=== PATIENT | female | born 1960 | race Caucasian/White ===

== ENCOUNTER 2019-04-19 14:02 | Outpatient (CLI) | payer MEDICARE, MEDICAID, SELFPAY ==
[2019-04-19 15:14] LABS: Basophils Absolute Auto 0.1 K/mm3 (0.0-0.1); Basophils Percent Auto 0.9 % (0.2-1.2); Eosinophils Absolute Auto 0.5 K/mm3 (0-0.3); Eosinophils Percent Auto 5.5 % (0-4.4); Hematocrit 38.8 % (37.0-47.0); Hemoglobin 12.7 g/dL (12.0-15.0); Immature Granulocyte Absolute 0.04 K/mm3 (0.00-0.031); Immature Granulocyte Percent A 0.5 % (0-0.5); Lymphocytes Absolute Auto 2.81 K/mm3 (0.9-3.2); Lymphocytes Percent Auto 34.5 % (18.3-44.2); Mean Corpuscular HGB Conc 32.7 g/dl (32-36); Mean Corpuscular Hemoglobin 32.9 pg (26-34); Mean Corpuscular Volume 100.5 fl (80-100); Mean Platelet Volume 9.9 fl (7.4-10.4); Monocytes Absolute Auto 0.8 K/mm3 (0.1-0.6); Monocytes Percent Auto 10.3 % (2.6-8.5); Neutrophils Absolute Auto 3.9 K/mm3 (1.3-6.7); Neutrophils Percent Auto 48.3 % (45.5-73.1); Platelet Count Result 333 k/mm3 (150-375); Red Blood Count 3.86 M/mm3 (4.2-5.4); Red Cell Distribution Width 12.7 % (11.5-14.5); White Blood Count 8.1 K/mm3 (4.5-10.0)
[2019-04-19 15:16] LABS: Add Urine Microscopic? NO; Appearance Urine Clear (Clear); Bilirubin Urine Negative (Negative); Blood Urine Negative (Negative); Color Urine Yellow (Yellow); Glucose Urine UA Negative (Negative); Ketones Urine Negative (Negative); Leukocyte Esterase Ur Negative LEU/UL (Negative); Nitrate Urine Negative (Negative); Protein Urine Negative (Negative); Specific Grav Ur 1.023 (1.001-1.035); Urobilinogen Urine Negative mg/dL (<2.0)
[2019-04-19 15:21] LABS: INR 0.9; Prothrombin Time 12.2 Seconds (11.1-14.7)
[2019-04-19 15:22] LABS: Partial Thromboplastin Time 29.4 SECONDS (22.3-36.8)
[2019-04-19 15:34] LABS: Albumin Level 4.2 g/dL (3.5-5.1); Blood Urea Nitrogen 18 mg/dL (7-17); Carbon Dioxide 28 mmol/L (22-30); Chloride 100 mmol/L (98-107); Estimated Glomerular Filt Rate 51; Glucose 48 mg/dL (65-105); Hemoglobin A1C 5.1 % (<5.7); Potassium 3.9 mmol/L (3.4-5.0); Sodium 137 mmol/L (137-145)
[2019-04-19 22:27] LABS: Urine Cotinine NEGATIVE
== END 2019-04-19 14:03 | disposition home or self-care (01) ==
LOC: ANHSURGERY 14:07
PROVIDERS: PCP Internal Medicine; Visit Provider Orthopaedic Surgery
DX: Z01.812 Encounter for preprocedural laboratory examination (principal); M87.00 Idiopathic aseptic necrosis of unspecified bone
CPT/HCPCS: 36415; 80048; 80307; 81003; 82040; 83036; 85025; 85610; 85730; 86850; 86900; 86901; 87081

== ENCOUNTER 2019-06-30 07:30 | Outpatient (RCR) | payer MEDICARE, MEDICAID, SELFPAY ==
[2019-06-08 11:08] VITALS: BMI 31.6
--- NOTE | 2019-06-08 12:24 | WPDWOUNDNOTE ---
Wound Care Note Date/Time: 06/08/19 12:24 Assessment and Plan Assessment and plan (1) S/P total knee arthroplasty: Qualifiers: Laterality: right Qualified Code(s): Z96.651 - Presence of right artificial knee joint Code(s): Z96.659 - Presence of unspecified artificial knee joint Status: Acute Assessment and Plan: 5 weeks, 6 days s/p RIGHT TKA. Patient presents to the [facility] today for follow up of wound on the right knee incision line. Right TKA incision with two areas of wound dehiscence now with slough covering wounds. Wounds without probing to bone/tendon or component. AROM/PROM of the right knee without pain. No signs of joint infection. Patient to continue washing wound with Hibiclens daily and transition to Santyl daily. Continue oral antibiotics. Patient to continue use of Ensure. Signs/symptoms of worsening infection reviewed with the patient in detail to report to ED immediately, verbalized understanding. Follow up in 1 week in the [facility] wound clinic for reevaluation. Review of Systems Const Reports as per HPI, Denies chills, Denies fatigue, Denies headache(s), Denies night sweats, Denies weakness, Denies weight gain and Denies weight loss Eyes Reports no additional eye complaints and Denies eye discharge ENT Reports system reviewed and no additional complaints, except as documented, Reports Normal hearing present, Denies dizziness, Denies headache(s) and Denies neck pain Card Reports no additional cardiovascular complaints, Denies chest pain, Denies syncope, Denies dyspnea and Denies dyspnea on exertion Resp Reports no additional respiratory complaints, Denies dyspnea, Denies dyspnea on exertion and Denies wheezing GI Reports no additional gastrointestinal complaints, Denies abdominal pain, Denies diarrhea and Denies nausea Denies urinary frequency and Denies urinary urgency Musc Reports as per HPI and Denies neck pain Skin/Breast Reports system reviewed and no additional complaints, except as docu Neuro Reports as per HPI, Reports Normal hearing present, Denies dizziness, Denies syncope, Denies headache(s) and Denies weakness Psych Reports no additional psychiatric complaints Endo Reports no additional endocrine complaints and Denies fatigue David/Lymph Reports no additional hematologic/lymphatic complaints Aller/Immun Reports no additional allergic/immunologic complaints and Denies wheezing Exam Const Constitutional General: cooperative Nutritional Appearance: average body habitus Orientation/consciousness: patient oriented x3 Constitutional Limitations: no limitations HENIL Head: normal to inspection Ears: hearing grossly normal bilaterally General nose exam: Normal external nose present Face and sinus: normal facial exam Mouth: moist mucous membranes Teeth and gingiva: dentition normal Eyes General: appearance normal, both eyes and all related structures Pupils: Yes Equal, round and reactive pupils present EOM: EOMs intact bilaterally Neck Neck: Yes normal visual inspection Chest Chest palpation & inspection: normal inspection of the chest Resp Effort & Inspection: normal respiratory effort and able to speak in complete sentences Cardio Jugular venous distension: no JVD Neuro Cranial nerves: Yes Equal, round and reactive pupils present Extrem Right upper extremity: normal to inspection, full ROM and normal capillary refill Left upper extremity: normal to inspection, full ROM and normal capillary refill Right lower extremity: normal to inspection, full ROM (limited knee ), normal capillary refill, knee and ankle (+ankle dorsiflexion/plantarflexion. ) Left lower extremity: normal to inspection, full ROM, normal capillary refill and knee Other: Right TKA incision now with dehiscence. More proximal wound with slough tissue, improving. Underlying ulcer without probing to bone/tendon or component. More distal ulcer with slough tissue covering as well, underlying ulcer without pro
--- NOTE | 2019-06-15 08:51 | WPDWOUNDNOTE ---
Wound Care Note Date/Time: 06/15/19 08:51 6 weeks, 6 days s/p RIGHT TKA Assessment and Plan Assessment and plan (1) Wound dehiscence: Code(s): T81.30XA - Disruption of wound, unspecified, initial encounter Status: Acute Assessment and Plan: 6 weeks, 6 days s/p RIGHT TKA. Patient presents to the [facility] today for follow up of wound on the right knee incision line. Right TKA incision with two areas of wound dehiscence now with 100% red/pink wound bed with use of Santyl daily. Wounds without probing to bone/tendon or component. AROM/PROM of the right knee without pain. No signs of joint infection. Patient to continue washing wound with Hibiclens daily and treating with Santyl/Vaseline Gauze/Cover dry. Continue oral antibiotics, prescription renewed. Patient to continue use of Ensure. Signs/symptoms of worsening infection reviewed with the patient in detail to report to ED immediately, verbalized understanding. Follow up in 1 week in the [facility] wound clinic for reevaluation. (2) S/P total knee arthroplasty: Qualifiers: Laterality: right Qualified Code(s): Z96.651 - Presence of right artificial knee joint Code(s): Z96.659 - Presence of unspecified artificial knee joint Status: Acute Assessment and Plan: Plan to resume formal PT at this time. Prescription renewed. Faxed to [facility] in [place]. (3) Smoking: Code(s): F17.200 - Nicotine dependence, unspecified, uncomplicated Status: Acute Assessment and Plan: Patient continues to smoke despite counseling on need for cessastion in order for improved wound healing. We discussed the [place] [employer] [place] and the [facility] smoking cessation program. Patient verbalized understanding. Review of Systems Const Reports as per HPI, Denies chills, Denies fatigue, Denies headache(s), Denies night sweats, Denies weakness, Denies weight gain and Denies weight loss Eyes Reports no additional eye complaints and Denies eye discharge ENT Reports system reviewed and no additional complaints, except as documented, Reports Normal hearing present, Denies dizziness, Denies headache(s) and Denies neck pain Card Reports no additional cardiovascular complaints, Denies chest pain, Denies syncope, Denies dyspnea and Denies dyspnea on exertion Resp Reports no additional respiratory complaints, Denies dyspnea, Denies dyspnea on exertion and Denies wheezing GI Reports no additional gastrointestinal complaints, Denies abdominal pain, Denies diarrhea and Denies nausea Denies urinary frequency and Denies urinary urgency Musc Reports as per HPI and Denies neck pain Skin/Breast Reports system reviewed and no additional complaints, except as docu Neuro Reports as per HPI, Reports Normal hearing present, Denies dizziness, Denies syncope, Denies headache(s) and Denies weakness Psych Reports no additional psychiatric complaints Endo Reports no additional endocrine complaints and Denies fatigue David/Lymph Reports no additional hematologic/lymphatic complaints Aller/Immun Reports no additional allergic/immunologic complaints and Denies wheezing Exam Const Constitutional General: cooperative Nutritional Appearance: average body habitus Orientation/consciousness: patient oriented x3 Constitutional Limitations: no limitations HENMT Head: normal to inspection Ears: hearing grossly normal bilaterally General nose exam: Normal external nose present Face and sinus: normal facial exam Mouth: moist mucous membranes Teeth and gingiva: dentition normal Eyes General: appearance normal, both eyes and all related structures Pupils: Yes Equal, round and reactive pupils present EOM: EOMs intact bilaterally Neck Neck: Yes normal visual inspection Chest Chest palpation & inspection: normal inspection of the chest Resp Effort & Inspection: normal respiratory effort and able to speak in complete sentences Cardio Jugular venous distension: no JVD Neuro
--- NOTE | 2019-07-07 16:50 | PCWOUND ---
WOCN NOTE Received call from Dr Grajeda office. patient no longer needs to follow in the wound center.
== END 2019-08-23 07:44 | disposition home or self-care (01) ==
LOC: ANHWOC 07:30
PROVIDERS: PCP Internal Medicine; Visit Provider Orthopaedic Surgery
DX: T81.31XD Disruption of external operation (surgical) wound, not elsewhere classified, subsequent encounter (principal); F17.200 Nicotine dependence, unspecified, uncomplicated; Z96.651 Presence of right artificial knee joint
CPT/HCPCS: 99212; A9270; G0463

== ENCOUNTER 2019-06-30 08:36 | Outpatient (CLI) | payer MEDICARE, MEDICAID, SELFPAY ==
[2019-06-30 08:49] LABS: Hematocrit 43.9 % (37.0-47.0); Hemoglobin 14.1 g/dL (12.0-15.0)
== END 2019-06-30 08:37 | disposition home or self-care (01) ==
PROVIDERS: PCP Internal Medicine; Visit Provider Internal Medicine
DX: D64.9 Anemia, unspecified (principal)
CPT/HCPCS: 36415; 85014; 85018; 99212; A9270; G0463

== ENCOUNTER 2019-10-06 13:29 | Outpatient (CLI) | payer MEDICARE, MEDICAID, SELFPAY ==
--- NOTE | ~2019-10-06 | CT_ITS ---
EXAMINATION: CT lung screening EXAM DATE: 10/06/2019 14:00 INDICATION: Personal history of nicotine dependence. TECHNIQUE: Spiral low dose CT of the chest without contrast. Axial, coronal and sagittal images were reviewed. The dose-length product (DLP) for this examination was 77.86 mGy-cm. The exposure was ta ilored according to patient size (auto mA exposure control), and iterative reconstruction (ASIR) was used as additional dose reduction technique. Comparison is made to prior examination from 07/21/2015. FINDINGS: There is mild to moderate emphysema and mild bronchiectasis. Tracheobronchial tree is pa tent. There is no mediastinal, hilar or axillary lymphadenopathy. There is small pericardial effu satnam. There is no pneumothorax. Heart normal in size. There is minimal coronary arterial calcifi cation, arterial sclerosis. Some scattered faint punctate nodules likely granulomas. Upper abdomen is unremarkable. There is thoracic spondylosis without osteoblastic or osteolytic lesions identified. IMPRESSION: Lung-RADS category 2, benign appearance or behavior (<1% chance of malignancy); recommend continued LDCT screening in 1 year. Reviewed, dictated and finalized at location A.
== END 2019-10-06 13:30 | disposition home or self-care (01) ==
PROVIDERS: PCP Internal Medicine; Visit Provider Nurse Practitioner Family
DX: Z12.2 Encounter for screening for malignant neoplasm of respiratory organs (principal); Z87.891 Personal history of nicotine dependence
CPT/HCPCS: G0297

== ENCOUNTER 2019-12-11 00:46 | Outpatient (CLI) | payer MEDICARE, MEDICAID, SELFPAY ==
[2019-12-11 18:31] LABS: SARS-CoV-2 RNA PCR Negative
== END 2019-12-11 00:47 | disposition home or self-care (01) ==
LOC: ANHCOVIDDT 00:47
PROVIDERS: PCP Internal Medicine; Visit Provider Internal Medicine Gastroenterology
DX: Z01.812 Encounter for preprocedural laboratory examination (principal); Z11.59 Encounter for screening for other viral diseases
CPT/HCPCS: 87635; C9803; U0003

== ENCOUNTER 2019-12-14 02:03 | Day surgery (SDC) | payer MEDICARE, MEDICAID, SELFPAY ==
[2019-12-03 10:55] VITALS: BMI 31.0
--- NOTE | 2019-12-14 07:12 | WPDANESEPPF ---
Anes - Initial Pre Proc Eval Procedure: Operation Date: 12/14/19 08:30 Proposed Procedures p Screening Colonoscopy - Benjamín Marino MD Date/Time: 12/14/19 07:12 Surgeon: Benjamín Marino MD Pre Op Diagnosis: neoplasm screening Patient Data Age: 59 Gender: F Height: 1.6 m Weight: 79.5 kg Allergies Allergy/AdvReac Type Severity Reaction Status Date / Time Iodinated Contrast Media Allergy Unknown hives Verified 12/14/19 07:23 Penicillins Allergy Unknown Hives,Unkno Verified 12/14/19 07:23 wn Home Medications Medication Instructions Recorded Confirmed Type bupropion HCl 150 mg PO BID 04/19/19 12/14/19 History ipratropium-albuterol 3 ml INHALATION BID 04/19/19 12/14/19 History cyclobenzaprine 10 mg tablet 10 mg PO TID PRN #30 tablet 05/06/19 12/14/19 Rx chlorhexidine gluconate 4 % 1 applic TOPICAL ONCE #236 ml 06/01/19 12/14/19 Rx topical liquid valsartan 160 mg tablet 160 mg PO DAILY #30 tablet 07/19/19 12/14/19 Rx fluticasone furoate 200 1 inhalation INHALATION Q24H 30 08/10/19 12/14/19 Rx mcg-vilanterol 25 mcg/dose Days #60 each inhalation powder albuterol sulfate 90 mcg/actuation 2 puff INHALATION QID PRN #8.5 gm 08/16/19 12/14/19 Rx aerosol inhaler omeprazole 40 mg capsule,delayed 40 mg PO DAILY #90 cap 08/20/19 12/14/19 Rx release atorvastatin 80 mg tablet See Rx Instructions .ROUTE 08/23/19 12/14/19 Rx .COMPLEX #90 tablet azelastine 137 mcg (0.1 %) nasal 137 mcg NASAL Q12H #30 ml 09/27/19 12/14/19 Rx spray aerosol fluticasone propionate 50 1 spray NASAL BID PRN #18.2 ml 09/27/19 12/14/19 Rx mcg/actuation nasal spray,suspension montelukast 10 mg tablet 10 mg PO DAILY #30 tablet 09/27/19 12/14/19 Rx Patient hx anesthesia problems: none Family hx anesthesia problems: none PMFSH Past Medical History Medical History (Updated 10/27/19 @ 08:17 by Lissy Hall NP-C) AVN (avascular necrosis of bone) Chronic pain syndrome COPD (chronic obstructive pulmonary disease) CVA (cerebral vascular accident) No residual deficits. Degenerative joint disease of knee Depression GERD (gastroesophageal reflux disease) Hyperlipidemia Hypertension Neuropathy Obstructive sleep apnea Not very compliant with CPAP. Postmenopausal Screening for breast cancer Screening for colon cancer Smoking Tobacco abuse Wound dehiscence Surgical History Surgical History S/P total knee arthroplasty Status post bilateral knee replacements Status post breast augmentation Status post cataract extraction Status post insertion of spinal cord stimulator Status post tubal ligation Social History Social History Social History: Mehul as her surrogate decision maker. She wishes to be a full code. Smoking packs per day: 1 Smoking cigarettes per day: 20.0 Years smoked: 40 Smoking pack-years: 40.00 Smoking status: Former smoker Tobacco type: cigarettes Smoking end date: 05/12/17 Alcohol intake: never Drinks per week: 12 Substance use: never Gender identity (if verbalized by the patient): Female Spiritual care concerns: No Agree to blood products: Yes Anes - Eval Final PreProcedure Day of Procedure 12/14/19 07:12 Patient weight: obese Heart: regular rate and rhythm Lungs: clear to auscultation and normal air movement Airway: Mallampati scale class II Neurological: alert and oriented Last oral intake: >/= 8 hours ASA classification: III Emergent: no Anesthetic plan: proceed Anesthesia type and monitoring: general GIVS and standard monitoring Informed Consent: The patient's anesthetic plan and its attendant risks and benefits were discussed with the patient/family/POA. Questions were solicited and answers provided to the satisfaction of the patient/family/POA.
[2019-12-14] MEDS: LACTATED RINGERS 1,000 ML 150 ML IV CONT (07:48)
[2019-12-14 07:50] VITALS: BP 136/76; PULSE 90; RESP 20; TEMP 36.3; O2SAT 96
--- NOTE | 2019-12-14 08:29 | PM.HPGS ---
History of Present Illness History of Present Illness Consent: Risks, benefits, and alternatives have been discussed and questions answered. Patient agrees to proceed with procedure. Chief complaint: neoplasm screening Narrative: Yun Rodriguez is a 59 year old female here for screening colonoscopy Review of Systems Constitutional: Constitutional: Denies headache(s) and Denies weakness Eyes: Eyes: Denies blurry vision ENT: Reports Normal hearing present, Denies headache(s) and Denies neck pain Cardiovascular: Cardiovascular: Denies chest pain and Denies dyspnea Respiratory: Respiratory: Denies dyspnea Gastrointestinal: Gastrointestinal: Reports no additional gastrointestinal complaints Genitourinary: Genitourinary: Denies dysuria Musculoskeletal: Musculoskeletal: Denies neck pain Integumentary/Breasts: Skin/Breast: Denies dry skin Neurologic: Reports Normal hearing present, Denies headache(s) and Denies weakness Psychiatric: Psychiatric: Denies anxiety Endocrine: Endocrine: Denies change in body appearance Hematologic/Lymphatic: Hematologic/Lymphatic: Denies easy bleeding Allergic/Immunologic: Allergic/Immunologic: Denies urticaria PMF Past Medical History Medical History (Updated 10/27/19 @ 08:17 by Lissy Hall, MECHANOTHERAPIST-C) AVN (avascular necrosis of bone) Chronic pain syndrome COPD (chronic obstructive pulmonary disease) CVA (cerebral vascular accident) No residual deficits. Degenerative joint disease of knee Depression GERD (gastroesophageal reflux disease) Hyperlipidemia Hypertension Neuropathy Obstructive sleep apnea Not very compliant with CPAP. Postmenopausal Screening for breast cancer Screening for colon cancer Smoking Tobacco abuse Wound dehiscence Surgical History Surgical History S/P total knee arthroplasty Status post bilateral knee replacements Status post breast augmentation Status post cataract extraction Status post insertion of spinal cord stimulator Status post tubal ligation Social History Social History Social History: Mehul as her surrogate decision maker. She wishes to be a full code. Smoking packs per day: 1 Smoking cigarettes per day: 20.0 Years smoked: 40 Smoking pack-years: 40.00 Smoking status: Former smoker Tobacco type: cigarettes Smoking end date: 05/12/17 Alcohol intake: never Drinks per week: 12 Substance use: never Gender identity (if verbalized by the patient): Female Spiritual care concerns: No Agree to blood products: Yes Meds Home Medications and Allergies Home Medications Medication Instructions Recorded Confirmed Type bupropion HCl 150 mg PO BID 04/19/19 12/14/19 History ipratropium-albuterol 3 ml INHALATION BID 04/19/19 12/14/19 History cyclobenzaprine 10 mg tablet 10 mg PO TID PRN #30 tablet 05/06/19 12/14/19 Rx chlorhexidine gluconate 4 % 1 applic TOPICAL ONCE #236 ml 06/01/19 12/14/19 Rx topical liquid valsartan 160 mg tablet 160 mg PO DAILY #30 tablet 07/19/19 12/14/19 Rx fluticasone furoate 200 1 inhalation INHALATION Q24H 30 08/10/19 12/14/19 Rx mcg-vilanterol 25 mcg/dose Days #60 each inhalation powder albuterol sulfate 90 mcg/actuation 2 puff INHALATION QID PRN #8.5 gm 08/16/19 12/14/19 Rx aerosol inhaler omeprazole 40 mg capsule,delayed 40 mg PO DAILY #90 cap 08/20/19 12/14/19 Rx release atorvastatin 80 mg tablet See Rx Instructions .ROUTE 08/23/19 12/14/19 Rx .COMPLEX #90 tablet azelastine 137 mcg (0.1 %) nasal 137 mcg NASAL Q12H #30 ml 09/27/19 12/14/19 Rx spray aerosol fluticasone propionate 50 1 spray NASAL BID PRN #18.2 ml 09/27/19 12/14/19 Rx mcg/actuation nasal spray,suspension montelukast 10 mg tablet 10 mg PO DAILY #30 tablet 09/27/19 12/14/19 Rx Allergies Allergy/AdvReac Type Severity Reaction Status Date / Time Iodinated Contrast Media A
[2019-12-14 09:01] VITALS: BP 84/42; PULSE 60; RESP 21; O2SAT 99
[2019-12-14 09:11] VITALS: BP 97/45; PULSE 60; RESP 22; O2SAT 100
[2019-12-14 09:21] VITALS: BP 117/52; PULSE 64; RESP 21; O2SAT 100
== END 2019-12-14 09:31 | disposition home or self-care (01) ==
PROVIDERS: PCP Internal Medicine; Visit Provider Internal Medicine Gastroenterology
PROC: 0DJD8ZZ Inspection of Lower Intestinal Tract, Via Natural or Artificial Opening Endoscopic (ICD-10-PCS; CPT 45378; principal; 2019-12-14 08:30)
DX: Z12.11 Encounter for screening for malignant neoplasm of colon (principal); D12.2 Benign neoplasm of ascending colon; I12.9 Hypertensive chronic kidney disease with stage 1 through stage 4 chronic kidney disease, or unspecified chronic kidney disease; N18.3 Chronic kidney disease, stage 3 (moderate); E78.5 Hyperlipidemia, unspecified; J44.9 Chronic obstructive pulmonary disease, unspecified; G47.33 Obstructive sleep apnea (adult) (pediatric); F32.9 Major depressive disorder, single episode, unspecified; Z86.73 Personal history of transient ischemic attack (TIA), and cerebral infarction without residual deficits; K21.9 Gastro-esophageal reflux disease without esophagitis; G89.4 Chronic pain syndrome; G62.9 Polyneuropathy, unspecified; Z87.891 Personal history of nicotine dependence; E66.9 Obesity, unspecified; Z68.30 Body mass index [BMI] 30.0-30.9, adult
CPT/HCPCS: 45385; 88305; J2001; J2704; J7120

== ENCOUNTER 2020-04-27 08:05 | Outpatient (CLI) | payer MEDICARE, MEDICAID, SELFPAY ==
[2020-04-27 08:40] LABS: Hematocrit 44.2 % (37.0-47.0); Hemoglobin 14.9 g/dL (12.0-15.0)
[2020-04-27 08:58] LABS: Cholesterol 147 mg/dL (0-200); HDL Direct 64 mg/dL; Triglycerides 144 mg/dL (<150)
[2020-04-27 09:09] LABS: LDL Cholesterol Direct 53 mg/dL
== END 2020-04-27 08:06 | disposition home or self-care (01) ==
PROVIDERS: PCP Internal Medicine; Visit Provider Internal Medicine
DX: D64.9 Anemia, unspecified (principal); E78.5 Hyperlipidemia, unspecified
CPT/HCPCS: 36415; 80061; 85014; 85018

== ENCOUNTER 2020-10-16 09:36 | Inpatient (IN) | payer MEDICARE, MEDICAID, SELFPAY ==
[2020-10-16] VITALS (26 sets, daily range): BP systolic 131–155; BP diastolic 56–100; PULSE 62–111; RESP 18–46; TEMP 35.7–37; O2SAT 93–98; BMI 36.3
--- NOTE | ~2020-10-16 | XR_ITS ---
EXAMINATION: XR chest 1V portable DATE: 10/16/2020 10:34 INDICATION: Shortness of breath. Chronic obstructive pulmonary disease exacerbation. TECHNIQUE: A single frontal view of the chest was obtained. COMPARISON: Chest single view 06/10/2017, chest CT 10/06/2019 FINDINGS: There are lucencies in the upper lungs, consistent with emphysema. No pleural effusion or p neumothorax. The heart size is normal. Epidural electrodes are noted. There are bilateral breast impl ants. IMPRESSION: 1. Emphysema. Reviewed, dictated and finalized at location A. IMPRESSION: 1. Emphysema.
--- NOTE | 2020-10-16 09:45 | ECG_ITS ---
Measurements Intervals [place] Rate: 103 P: 67 AR: 148 QRS: 76 QRSD: 90 T: 57 QT: 329 QTc: 431 Interpretive Statements SINUS TACHYCARDIA BORDERLINE ST ABNORMALITY- LATERAL LEADS BASELINE ARTIFACT- I, II, III, AVR, AVL, AVF, V2-V6 BORDERLINE ECG Electronically Signed On 10-17-2020 19:03:23 CDT by Tru Hunter D.O.
--- NOTE | 2020-10-16 09:56 | ED.SOB ---
HPI - SOB/Dyspnea General Chief Complaint: Shortness of Breath/Dyspnea Stated Complaint: SOB Time Seen by Provider: 10/16/20 09:56 Source: patient Mode of arrival: ambulatory Limitations: clinical condition History of Present Illness HPI Narrative: Patient is a 60-year-old female with a history of COPD who presents for evaluation of shortness of breath. Patient reportedly has been feeling short of breath over the past 2 weeks, has been on 2 prednisone tapers and finished her last one 3 days ago. Patient follows with Dr. Deras with pulmonology. Patient denies fever or chest pain, states she has had difficulty taking a deep breath and has had increased work of breathing over the past 48 hours. She has been using her nebulizer treatments at home without much improvement. She is still smoking. She reports cough with increased sputum production. No hemoptysis. No history of Covid. Patient is vaccinated. Related Data Allergies Allergy/AdvReac Type Severity Reaction Status Date / Time Iodinated Contrast Media Allergy Mild hives Verified 10/16/20 09:49 Penicillins Allergy Mild Hives,Unkno Verified 10/16/20 09:49 wn Review of Systems Review of Systems: Narrative: CONSTITUTIONAL: Denies fever, chills, or sweats. EYES: Denies visual changes, redness, or discharge. ENT: Denies rhinorrhea or congestion CARDIOVASCULAR: Denies chest pain, palpitations, or edema. RESPIRATORY: Reports cough and shortness of breath GASTROINTESTINAL: Denies abdominal pain, nausea, vomiting, or diarrhea. GENITOURINARY: Denies dysuria or hematuria. SKIN: Denies rash or itching. MUSCULOSKELETAL: Denies back pain, joint pain, or myalgia. NEUROLOGIC: Denies headache, numbness, or weakness. [facility] Past Medical History Medical History Abnormal LFTs Adverse effect of glucocorticoids and synthetic analogues, initial encounter Avascular necrosis due to adverse effect of steroid therapy Avascular necrosis of medial condyle of left femur AVN (avascular necrosis of bone) Cerebrovascular accident (CVA) Chronic pain syndrome COPD (chronic obstructive pulmonary disease) CVA (cerebral vascular accident) No residual deficits. Degenerative joint disease of knee Depression Eczematous dermatitis of unspecified eye, unspecified eyelid GERD (gastroesophageal reflux disease) Hyperlipidemia Hypertension Neuropathy Obstructive sleep apnea Postmenopausal Screening for breast cancer Screening for colon cancer Smoking Tobacco abuse Wound dehiscence Surgical History Surgical History Presence of left artificial knee joint S/P total knee arthroplasty Status post bilateral knee replacements Status post breast augmentation Status post cataract extraction Status post insertion of spinal cord stimulator Status post tubal ligation Family History Family History Sibling Asthma Mother Family history of lung cancer Patient's mother is Hypertension Father Family history of lung cancer Patient's father is Social History Social History Social History: Mehul as her surrogate decision maker. She wishes to be a full code. Smoking packs per day: 1 Smoking cigarettes per day: 20.0 Years smoked: 40 Smoking pack-years: 40.00 Smoking status: Current every day smoker Tobacco type: cigarettes Smoking end date: 05/12/17 Alcohol intake: never Drinks per week: 12 Substance use: never Gender identity (if verbalized by the patient): Female Spiritual care concerns: No Agree to blood products: Yes Exam Narrative: Exam Narrative: GENERAL: Awake, alert, diaphoretic, able to speak in short sentences only HEAD: Normocephalic, atraumatic. EYES: PERRLA and EOMI. ENT: Nares clear, no rhinorrhea or epistaxis.
[2020-10-16] MEDS: methylPREDNISolone SOD SUCC 125 MG VIAL IV PUSH (10:08)
[2020-10-16] MEDS: MAGNESIUM SULF 2 GM/WATER 50ML 2 GM/50 ML BAG IVPB (10:08)
[2020-10-16] MEDS: SODIUM CHLORIDE 0.9% IV 1,000 ML 999 ML IV CONT (10:08)
[2020-10-16 10:25] LABS: Basophils Absolute Auto 0.1 K/mm3 (0.0-0.1); Eosinophils Absolute Auto 1.2 K/mm3 (0-0.3); Eosinophils Percent Auto 10.1 % (0-4.4); Hematocrit 46.4 % (37.0-47.0); Hemoglobin 15.1 g/dL (12.0-15.0); Immature Granulocyte Absolute 0.05 K/mm3 (0.00-0.031); Immature Granulocyte Percent A 0.4 % (0-0.5); Lymphocytes Absolute Auto 4.18 K/mm3 (0.9-3.2); Lymphocytes Percent Auto 34.9 % (18.3-44.2); Mean Corpuscular HGB Conc 32.5 g/dl (32-36); Mean Corpuscular Hemoglobin 32.2 pg (26-34); Mean Corpuscular Volume 98.9 fl (80-100); Mean Platelet Volume 9.9 fl (7.4-10.4); Monocytes Absolute Auto 1.1 K/mm3 (0.1-0.6); Monocytes Percent Auto 9.2 % (2.6-8.5); Neutrophils Absolute Auto 5.3 K/mm3 (1.3-6.7); Neutrophils Percent Auto 44.4 % (45.5-73.1); Platelet Count Result 321 k/mm3 (150-375); Red Blood Count 4.69 M/mm3 (4.2-5.4); Red Cell Distribution Width 13.7 % (11.5-14.5)
[2020-10-16] MEDS: ALBUTEROL SULFATE NEB 2.5 MG/0.5 ML INH 20 MG INHALATION (10:26)
[2020-10-16] MEDS: IPRATROPIUM BR 0.02% INH SOLN 0.5 MG/2.5 ML VIAL 2 MG INHALATION (10:26)
--- NOTE | 2020-10-16 10:29 | PC.NURSE ---
Respiratory at bedside. Pt reports she is feeling more comfortable s/p meds, HR down to 80's, breathing appears more relaxed, skin pink and dry
[2020-10-16 10:33] LABS: Alveolar/Arterial O2 Gradient 122.5 mmHg; Base Excess ABG -1.5 mEq/l (+/-2.0); Carboxyhemoglobin 4.3 % THb (0-2.0); Device NASAL CANNULA; Fractional Inspired Oxygen 32 %; HCO3 ABG 21.3 mEq/l (22.0-26.0); Methemoglobin ABG 0.2 %THb (0-1.5); Oxygen Content ABG 19.2 %vol (16.0-22.0); Oxygen Saturation ABG 94.9 % (95.0-100.0); Oxyhemoglobin 90.3 % THb (90.0-100.0); PCO2 ABG 31.1 mmHg (35.0-45.0); PO2 ABG 69.3 mmHg (80.0-100.0); PO2 FiO2 Ratio Arterial Blood 2.17 %; Reduced Hemoglobin 5.2 %THb (0-5.0); Site Drawn RIGHT BRACHIAL; Total Hemoglobin 15.1 g/dL (12.0-18.0); pH ABG 7.454 (7.350-7.450)
[2020-10-16 10:39] LABS: Lactic Acid Reflex 3.1 mmol/L (0.7-2.1)
[2020-10-16 11:37] LABS: Anion Gap 8 mmol/L (8-16); Blood Urea Nitrogen 14 mg/dL (7-17); Calcium 8.7 mg/dL (8.4-10.2); Carbon Dioxide 21 mmol/L (22-30); Chloride 108 mmol/L (98-107); Estimated CRCL calculation 53 ml/min; Estimated Glomerular Filt Rate 51; Glucose 102 mg/dL (65-105); Sodium 137 mmol/L (137-145)
[2020-10-16 11:49] LABS: Troponin I < 0.012 ng/mL (0.000-0.034)
[2020-10-16 12:53] LABS: Add Urine Microscopic? YES; Appearance Urine Clear (Clear); Bilirubin Urine Negative (Negative); Blood Urine 1+ (Negative); Color Urine Yellow (Yellow); Glucose Urine UA Negative (Negative); Ketones Urine Negative (Negative); Leukocyte Esterase Ur Negative LEU/UL (Negative); Mucus Urine Rare /lpf; Nitrate Urine Negative (Negative); Protein Urine Negative (Negative); RBC Urine 0-2 /hpf (0-2); Specific Grav Ur 1.012 (1.001-1.035); Squamous Epithelial Cell Urine Few /hpf (Few); Urobilinogen Urine Negative mg/dL (<2.0); WBC Urine 0-3 /hpf
[2020-10-16 13:22] LABS: Reflex Lactic Acid Yes or No Add Lactic
[2020-10-16 13:32] LABS: Amphetamine Screen Urine Negative (Negative); Barbiturate Screen Urine Negative (Negative); Benzodiazepines Screen Urine Negative (Negative); Cannabinoid Screen Urine Positive (Negative); Cocaine Screen Urine Negative (Negative); Methadone Screen Urine Negative (Negative); Opiate Screen Urine Positive (Negative); Phencyclidine Screen Urine Negative (Negative)
[2020-10-16 14:05] LABS: Lactic Acid 1.9 mmol/L (0.7-2.1)
--- NOTE | 2020-10-16 14:46 | ADMGEN ---
This patient, Yun Rodriguez, was admitted to IMU Room 200-01 at 1443. Patient/family oriented to hospital policies and general routines including ID bracelet, bed and alarms, visiting hours, pain management, procedures, bathroom and other care routines, personal items, smoking policy, room service/diet, and visiting hours. Information on how to activate the Rapid Response Team has been discussed. Patient/Family are encouraged to report perceived risks to care and to ask questions if they do not understand what they are told or what they should do.
[2020-10-16] MEDS: IPRATROPIUM BR 0.02% INH SOLN 0.5 MG/2.5 ML VIAL INHALATION ×2 (15:08→20:00)
[2020-10-16] MEDS: ALBUTEROL SULFATE NEB 2.5 MG/0.5 ML INH 5 MG INHALATION ×2 (15:08→20:00)
--- NOTE | 2020-10-16 15:37 | PM.IMHP ---
H&P: HPI History of Present Illness Date/Time: 10/16/20 15:37 this is a 60-year-old female who has a history of COPD. The patient typically sees Colton rojo as her lab asst. The patient has been smoking. The patient came in to be evaluated for shortness of breath today. The patient has been more short of breath over the last 2 weeks. She has been on 2 prednisone tapers she finished the last 1 3 days ago. She said the 1st day she felt like things are starting to go bad again and then over the next day she just can't tolerated anymore. She does not wear oxygen at home. She has been using her nebulizer machine at home. She has increased sputum production and no hematemesis and no his history of COVID. White count is 12.0 however she has been on steroids. Chest x-ray was read as emphysema. Her pH was 7.45 CO2 was low at 31.1 PO2 69.3. Lactic was 3.1 and is down to 1.9 now troponin is negative. The patient is positive for cannabinoids. The patient was given a nebulizer treatment, Solu-Medrol magnesium, IV fluid, azithromycin, and Rocephin. The patient is on oxygen at 2 L per nasal cannula. The patient is being admitted to inpatient services on the date of service of 10/16/2020. Chief Complaint: Shortness of breath Review of Systems Review of Systems: All systems reviewed & are unremarkable except as noted in HPI and below Constitutional: Constitutional: Reports as per HPI and Reports no additional constitutional complaints Eyes: Eyes: Reports as per HPI and Reports no additional eye complaints ENT: Reports system reviewed and no additional complaints, except as documented and Reports Normal hearing present Cardiovascular: Cardiovascular: Reports no additional cardiovascular complaints Respiratory: Respiratory: Reports no additional respiratory complaints and Reports no additional respiratory complaints Gastrointestinal: Gastrointestinal: Reports as per HPI and Reports no additional gastrointestinal complaints Musculoskeletal: Musculoskeletal: Reports no additional musculoskeletal complaints Integumentary/Breasts: Skin/Breast: Reports system reviewed and no additional complaints, except as docu and Reports as per HPI Neurologic: Reports system reviewed and no additional complaints, except as documented, Reports as per HPI and Reports Normal hearing present Psychiatric: Psychiatric: Reports no additional psychiatric complaints and Reports as per HPI Endocrine: Endocrine: Reports no additional endocrine complaints Hematologic/Lymphatic: Hematologic/Lymphatic: Reports no additional hematologic/lymphatic complaints Allergic/Immunologic: Allergic/Immunologic: Reports no additional allergic/immunologic complaints [facility] Past Medical History Medical History (Updated 10/16/20 @ 15:54 by Cata Turcios NP) Abnormal LFTs Adverse effect of glucocorticoids and synthetic analogues, initial encounter Avascular necrosis due to adverse effect of steroid therapy Avascular necrosis of medial condyle of left femur AVN (avascular necrosis of bone) Cerebrovascular accident (CVA) Chronic pain syndrome COPD (chronic obstructive pulmonary disease) CVA (cerebral vascular accident) No residual deficits. Degenerative joint disease of knee Depression GERD (gastroesophageal reflux disease) Hyperlipidemia Hypertension Neuropathy Obstructive sleep apnea Postmenopausal Screening for breast cancer Screening for colon cancer Smoking Tobacco abuse Wound dehiscence Surgical History Surgical History Presence of left artificial knee joint S/P total knee arthroplasty Status post bilateral knee replacements Status post breast augmentation Status post cataract extraction Status post insertion of spinal cord stimulator Status post tubal ligation Family History Family History Sibling Asthma Mother Family history of lung cancer Alexandra
[2020-10-16] MEDS: methylPREDNISolone SOD SUCC 125 MG VIAL 60 MG IV PUSH (20:26)
[2020-10-16] MEDS: AZELASTINE HCL NASAL 0.1% 137 MCG/SPR 30 ML BTL 1 SPRAY NASAL (20:26)
[2020-10-17] VITALS (27 sets, daily range): BP systolic 108–150; BP diastolic 54–87; PULSE 59–86; RESP 18–31; TEMP 35.5–36.5; O2SAT 94–99
[2020-10-17] MEDS: IPRATROPIUM BR 0.02% INH SOLN 0.5 MG/2.5 ML VIAL INHALATION ×4 (02:55→20:04)
[2020-10-17] MEDS: ALBUTEROL SULFATE NEB 2.5 MG/0.5 ML INH 5 MG INHALATION ×2 (02:55→09:31)
[2020-10-17 04:57] LABS: Basophils Percent Auto 0.2 % (0.2-1.2); Eosinophils Percent Auto 0.1 % (0-4.4); Hematocrit 40.4 % (37.0-47.0); Hemoglobin 13.3 g/dL (12.0-15.0); Immature Granulocyte Absolute 0.06 K/mm3 (0.00-0.031); Immature Granulocyte Percent A 0.5 % (0-0.5); Lymphocytes Absolute Auto 1.51 K/mm3 (0.9-3.2); Mean Corpuscular HGB Conc 32.9 g/dl (32-36); Mean Corpuscular Hemoglobin 32.6 pg (26-34); Mean Platelet Volume 10.1 fl (7.4-10.4); Monocytes Absolute Auto 0.5 K/mm3 (0.1-0.6); Monocytes Percent Auto 4.1 % (2.6-8.5); Neutrophils Absolute Auto 10.4 K/mm3 (1.3-6.7); Neutrophils Percent Auto 83.1 % (45.5-73.1); Platelet Count Result 279 k/mm3 (150-375); Red Blood Count 4.08 M/mm3 (4.2-5.4); Red Cell Distribution Width 13.4 % (11.5-14.5); White Blood Count 12.6 K/mm3 (4.5-10.0)
[2020-10-17 05:08] LABS: Alanine Aminotransferase 23 U/L (4-35); Albumin Level 3.8 g/dL (3.5-5.1); Alkaline Phosphatase 73 U/L (38-126); Anion Gap 9 mmol/L (8-16); Aspartate Amino Transferase 22 U/L (14-36); Bilirubin,Total 0.3 mg/dL (0.2-1.3); Blood Urea Nitrogen 14 mg/dL (7-17); Calcium 9.1 mg/dL (8.4-10.2); Carbon Dioxide 21 mmol/L (22-30); Chloride 106 mmol/L (98-107); Estimated CRCL calculation 72 ml/min; Estimated Glomerular Filt Rate > 60; Glucose 141 mg/dL (65-105); Magnesium 2.5 mg/dL (1.6-2.3); Potassium 4.4 mmol/L (3.4-5.0); Sodium 136 mmol/L (137-145)
[2020-10-17] MEDS: methylPREDNISolone SOD SUCC 125 MG VIAL 60 MG IV PUSH (05:48)
[2020-10-17 06:38] LABS: Thyroid Stimulating Hormone Reflex 0.159 uIU/mL (0.465-4.68)
[2020-10-17 07:22] LABS: Free T4 Free Thyroxine Reflex 1.11 ng/dL (0.78-2.19)
[2020-10-17 08:42] LABS: Total Triiodothyronine (T3) 0.71 NG/ML (0.97-1.69)
[2020-10-17] MEDS: MONTELUKAST SODIUM 10 MG TABLET PO (09:31)
[2020-10-17] MEDS: AZELASTINE HCL NASAL 0.1% 137 MCG/SPR 30 ML BTL 1 SPRAY NASAL ×2 (09:31→20:12)
[2020-10-17] MEDS: ATORVASTATIN 40 MG TABLET 80 MG PO (09:31)
[2020-10-17] MEDS: VALSARTAN 160 MG TABLET PO (09:32)
[2020-10-17] MEDS: PANTOPRAZOLE 40 MG TABLET PO ×2 (09:32→20:12)
[2020-10-17] MEDS: FLUTICASONE/UMECLIDIN/VILANTER 100-62.5-25 MCG ELLIPTA 1 PUFF INHALATION (10:03)
--- NOTE | 2020-10-17 10:21 | PM.CNPUL ---
Assessment and Plan Assessment and plan (1) Asthma-COPD overlap syndrome: Code(s): J44.9 - Chronic obstructive pulmonary disease, unspecified Status: Acute Assessment and Plan: Patient carries a diagnosis of asthma COPD overlap syndrome with eosinophilia on presentation of 1212/uL and she also has apical predominant moderate paraseptal emphysema and mild centrilobular emphysema on her CT scan from 10/06 2019. PFT's from 04/30/2018 demonstrate a mildly concave expiratory flow tracing with a FEV1: FVC ratio of 75% and a normal FEV1 with air trapping And a decreased absolute diffusion capacity. She was steroid dependent inpulmonary clinic for about 7 years previously. Patient states that she has improve with triple inhalers in the Pulmonary Clinic. 10/17 Currently patient with a exacerbation and has improved with Solu-Medrol, albuterol and ipratropium nebulizers, and ceftriaxone and azithromycin for possible pneumonia. Patient states she is 50% better than yesterday. There is no evidence of hypercarbic respiratory failure with her ABG on 3 L of 7.45. Patient still with mild end expiratory wheezes but given her clinical improvement I will decrease her Solu-Medrol from 60 Q 8 to 20 mg IV q.6 hours, I will change her albuterol nebs to 2.5 mg Q 6 hours and continue her ipratropium at 0.5 mg nebs q.6 hours. Continue montelukast and azalasting nesal spray for now. Chest x-ray without any focal infiltrates and her white blood cell count was 12. She denied fever chills at home. I will continue ceftriaxone and azithromycin pending blood cultures. Will deescalate to azithromycin for 5 days for a tracheobronchitis if blood cultures remain negative at 48 hours. I have when the patient to room air this morning and her room air oxygen saturations are 95%. Goal saturation greater than 90%. Will follow with you (2) Obstructive sleep apnea: Code(s): G47.33 - Obstructive sleep apnea (adult) (pediatric) Status: Acute Assessment and Plan: Patient states she has been wearing CPAP for many years with pressure of 13 on room air with a full face mask. Patient tolerates this well and states she has good clinical benefit. [place] at clinic on 07/28/20 was 7. Patient states [employer] is her DME company and I will contact them to try to receive a current download. Patient wore hospital CPAP 13 but stated there was a large leak with the hospital mask. Patient's has brought in her tubing and mask and jose will use the hospital CPAP 13 with patient's tubing and mask. History of Present Illness History of Present Illness Consult date: 10/17/20 Chief complaint: COPD exacerbation Narrative: This is a new pulmonary consult for COPD exacerbation and obstructive sleep apnea is a 60-year-old woman with a history of asthma COPD overlap syndrome, obstructive sleep apnea on CPAP 13 presented to the emergency department on 10/16 with about 2 weeks worsening shortness of breath. Patient is followed in the Pulmonary Clinic and had called for COPD/asthma exacerbation and recieved 2 prednisone tapers. She did not improve and was instructed to go to ED on 10/16. in the emergency department the patient had diffuse bilateral wheezes, white blood cell type count of 12,000 with 10.1% eosinophils or 1212 per micro L, she had a blood gas on 3 L nasal cannula with a pH of 7.4 10/09/2068, her serum bicarbonate was 21. Her saturations on 2 L nasal cannula was 94%. She was treated with bronchodilators, Solu-Medrol, ceftriaxone and azithromycin. Patient improved over the next 1-2 hours in the emergency department and was admitted to the floor. 10/17 At home patient states that whenever she stopped her prednisone she would get sick in the next 1-2 days. Patient denied any fever, chills but did have cough and some greenish phlegm. Patient also had audible wheezes that she could hear. Patient was COVID vaccinated approxima
[2020-10-17] MEDS: methylPREDNISolone SOD SUCC 40 MG VIAL 20 MG IV PUSH ×3 (12:48→23:12)
--- NOTE | 2020-10-17 13:46 | PM.IMPN ---
Progress Note: A&P Assessment and Plan (1) Acute exacerbation of chronic obstructive airways disease: Code(s): J44.1 - Chronic obstructive pulmonary disease with (acute) exacerbation Status: Acute Assessment and Plan: Patient is a 60-year-old woman with a history of emphysema, tobacco abuse, who presents emergency room with worsening shortness of breath over the last 2 weeks. The patient has taken 2 different steroid tapers without much improvement. She came in due to worsening shortness of breath and unable to walk around her house without becoming severely dyspneic. Was afebrile, tachycardic at 110, increased respiratory rate at 38, elevated blood pressure 155/100, oxygen saturation 96% on 3 L via nasal cannula. Initial labs showed Showed leukocytosis at 12,000, elevated eosinophils, ABG showed respiratory alkalosis. BMP showed slightly elevated creatinine 1.1. Troponin normal. Lactic acid was elevated at 3.1, improved with IV fluids. Urinalysis showed no acute signs of infection. Chest x-ray showed emphysema but no acute signs of an infection. Was admitted into the hospital for acute respiratory failure with hypoxemia, COPD exacerbation and a consultation to pulmonology. Patient was placed on IV Solu-Medrol q.6, DuoNebs q.6 as well as IV antibiotics for community-acquired pneumonia Pulmonology evaluated the patient and made some adjustments to her IV Solu-Medrol Patient was weaned down to room air today and tolerating it well. Continue IV antibiotics until blood cultures return and are negative for 48 hrs Continue monitoring. Appreciate Pulmonology consultation (2) Essential hypertension: Code(s): I10 - Essential (primary) hypertension Status: Acute Assessment and Plan: BP 150/65 prior to home medications. Continue with Valsartan. (3) Tobacco abuse: Code(s): Z72.0 - Tobacco use Status: Acute Assessment and Plan: We have discussed smoking cessation for approximately 5 minutes. Patient is ready to quit smoking upon discharge. (4) Obstructive sleep apnea: Code(s): G47.33 - Obstructive sleep apnea (adult) (pediatric) Status: Acute Assessment and Plan: The patient stated that her can bring her CPAP I did order for auto titrate. (5) Hyperlipidemia: Code(s): E78.5 - Hyperlipidemia, unspecified Status: Acute Assessment and Plan: Continue with home medications. She is on atorvastatin. (6) GERD (gastroesophageal reflux disease): Code(s): K21.9 - Gastro-esophageal reflux disease without esophagitis Status: Acute Assessment and Plan: Continue with home medication. Time Spent With Patient Time with patient: 25 - 35 minutes Subjective Date/time seen: 10/17/20 13:46 Interval history: Date of Service 10/17/20: Patient reports breathing better today. She is now on room air at this time and able to walk to the bathroom without becoming dyspneic. She has had a slight cough, with no real sputum production. She denies any fevers, chills, chest pain, nausea, vomiting, abdominal pain, leg swelling, calf pain or any other symptoms at this time. Review of Systems Review of Systems: All systems reviewed & are unremarkable except as noted in HPI and below Exam Narrative: Exam Narrative: General: 60 year-old woman laying flat in bed talking to her significant other. Appears comfortable. In no acute distress. Skin: No jaundice or cyanosis. Good skin turgor. Neck: Full range of motion. Supple. Respiratory: Decreased lung sounds throughout bilaterally, slight wheezing noted. No bony chest wall tenderness. Cardiovascular: The heart has a regular rate and rhythm without murmur. Lower extremities: No lower extremity edema. Distal pulses are easily palpated. No calf tenderness to palpation. Gastrointestinal: The abdomen is soft, nontender and nondistended with active bowel sounds. Ps
[2020-10-17] MEDS: ALBUTEROL SULFATE NEB 2.5 MG/0.5 ML INH INHALATION ×2 (14:28→20:04)
[2020-10-18] VITALS (13 sets, daily range): BP systolic 106–151; BP diastolic 53–80; PULSE 52–76; RESP 15–19; TEMP 36.2–36.9; O2SAT 95–97
[2020-10-18] MEDS: IPRATROPIUM BR 0.02% INH SOLN 0.5 MG/2.5 ML VIAL INHALATION ×4 (01:43→19:33)
[2020-10-18] MEDS: ALBUTEROL SULFATE NEB 2.5 MG/0.5 ML INH INHALATION ×4 (01:43→19:33)
[2020-10-18 05:15] LABS: Hematocrit 40.4 % (37.0-47.0); Hemoglobin 13.1 g/dL (12.0-15.0); Mean Corpuscular HGB Conc 32.4 g/dl (32-36); Mean Corpuscular Hemoglobin 32.7 pg (26-34); Mean Corpuscular Volume 100.7 fl (80-100); Mean Platelet Volume 10.6 fl (7.4-10.4); Platelet Count Result 273 k/mm3 (150-375); Red Blood Count 4.01 M/mm3 (4.2-5.4); Red Cell Distribution Width 13.6 % (11.5-14.5); White Blood Count 14.3 K/mm3 (4.5-10.0)
[2020-10-18 05:19] LABS: Anion Gap 7 mmol/L (8-16); Blood Urea Nitrogen 18 mg/dL (7-17); Calcium 9.2 mg/dL (8.4-10.2); Carbon Dioxide 26 mmol/L (22-30); Chloride 105 mmol/L (98-107); Estimated CRCL calculation 59 ml/min; Estimated Glomerular Filt Rate 57; Glucose 121 mg/dL (65-105); Potassium 5.1 mmol/L (3.4-5.0); Sodium 138 mmol/L (137-145)
[2020-10-18] MEDS: methylPREDNISolone SOD SUCC 40 MG VIAL 20 MG IV PUSH ×3 (05:37→17:38)
[2020-10-18] MEDS: ATORVASTATIN 40 MG TABLET 80 MG PO (08:01)
[2020-10-18] MEDS: PANTOPRAZOLE 40 MG TABLET PO ×2 (08:02→21:51)
[2020-10-18] MEDS: MONTELUKAST SODIUM 10 MG TABLET PO (08:02)
[2020-10-18] MEDS: VALSARTAN 160 MG TABLET PO (08:02)
[2020-10-18] MEDS: AZELASTINE HCL NASAL 0.1% 137 MCG/SPR 30 ML BTL 1 SPRAY NASAL ×2 (08:02→21:51)
--- NOTE | 2020-10-18 09:08 | PC.NURSE ---
Received patient from IMU via bed with IMU staff. Patient settled in room. No respiratory distress noted. No c/o pain.
--- NOTE | 2020-10-18 11:23 | PC.NURSE ---
Addendum entered by Maine Silva RN 10/18/20 15:17: Report given to SALVATORE Nieves. Original Note: This patient, Yun Rodriguez, was transferred to [facility] on 10/18/20 at 0845. Personal belongings sent with patient. Report given to [ ]. Appropriate documentation sent with patient.
[2020-10-18 13:39] LABS: Potassium 4.7 mmol/L (3.4-5.0)
--- NOTE | 2020-10-18 14:40 | PM.IMPN ---
Progress Note: A&P Assessment and Plan (1) Acute exacerbation of chronic obstructive airways disease: Code(s): J44.1 - Chronic obstructive pulmonary disease with (acute) exacerbation Status: Acute Assessment and Plan: Patient is a 60-year-old woman with a history of emphysema, tobacco abuse, who presents emergency room with worsening shortness of breath over the last 2 weeks. The patient has taken 2 different steroid tapers without much improvement. She came in due to worsening shortness of breath and unable to walk around her house without becoming severely dyspneic. Was afebrile, tachycardic at 110, increased respiratory rate at 38, elevated blood pressure 155/100, oxygen saturation 96% on 3 L via nasal cannula. Initial labs showed Showed leukocytosis at 12,000, elevated eosinophils, ABG showed respiratory alkalosis. BMP showed slightly elevated creatinine 1.1. Troponin normal. Lactic acid was elevated at 3.1, improved with IV fluids. Urinalysis showed no acute signs of infection. Chest x-ray showed emphysema but no acute signs of an infection. Was admitted into the hospital for acute respiratory failure with hypoxemia, COPD exacerbation and a consultation to pulmonology. Patient was placed on IV Solu-Medrol q.6, DuoNebs q.6 as well as IV antibiotics for community-acquired pneumonia Pulmonology evaluated the patient and made some adjustments to her IV Solu-Medrol, decreased to 20 mg Q6hrs. She is much improved today. Patient doing well on room air. Wheezing improved. Continue IV antibiotics until blood cultures return and are negative for 48 hrs Continue monitoring. Appreciate Pulmonology consultation (2) Essential hypertension: Code(s): I10 - Essential (primary) hypertension Status: Acute Assessment and Plan: BP 151/80 prior to home medications. Continue with Valsartan. (3) Tobacco abuse: Code(s): Z72.0 - Tobacco use Status: Acute Assessment and Plan: We have discussed smoking cessation for approximately 5 minutes. Patient is ready to quit smoking upon discharge. (4) Obstructive sleep apnea: Code(s): G47.33 - Obstructive sleep apnea (adult) (pediatric) Status: Acute Assessment and Plan: The patient doing well with her CPAP at night (5) Hyperlipidemia: Code(s): E78.5 - Hyperlipidemia, unspecified Status: Acute Assessment and Plan: Continue with home medications. She is on atorvastatin. (6) GERD (gastroesophageal reflux disease): Code(s): K21.9 - Gastro-esophageal reflux disease without esophagitis Status: Acute Assessment and Plan: Continue with home medication. Time Spent With Patient Time with patient: 25 - 35 minutes Subjective Date/time seen: 10/18/20 14:40 Interval history: Date of Service 10/18/20: Patient reports breathing better today. She still has intermittent wheezing, but much improved from arrival. She is able to walk around room with less dyspnea on exertion. She has a cough, with no real sputum production. She denies any fevers, chills, chest pain, nausea, vomiting, abdominal pain, leg swelling, calf pain or any other symptoms at this time. Review of Systems Review of Systems: All systems reviewed & are unremarkable except as noted in HPI and below Exam Narrative: Exam Narrative: General: 60 year-old woman laying flat in bed watching TV. Appears comfortable. In no acute distress. Skin: No jaundice or cyanosis. Good skin turgor. Neck: Full range of motion. Supple. Respiratory: Improved lung sounds throughout, no wheezing, rales or rhonchi auscultated. No bony chest wall tenderness. Cardiovascular: The heart has a regular rate and rhythm without murmur. Lower extremities: No lower extremity edema. Distal pulses are easily palpated. No calf tenderness to palpation. Gastrointestinal: The abdomen is soft, nontender and nondistended with active bow
--- NOTE | 2020-10-18 17:56 | PM.PNPUL ---
Progress Note: A&P Assessment and Plan (1) Asthma-COPD overlap syndrome: Code(s): J44.9 - Chronic obstructive pulmonary disease, unspecified Status: Acute Assessment and Plan: Patient carries a diagnosis of asthma COPD overlap syndrome with eosinophilia on presentation of 1212/uL and she also has apical predominant moderate paraseptal emphysema and mild centrilobular emphysema on her CT scan from 10/06 2019. PFT's from 04/30/2018 demonstrate a mildly concave expiratory flow tracing with a FEV1: FVC ratio of 75% and a normal FEV1 with air trapping And a decreased absolute diffusion capacity. She was steroid dependent inpulmonary clinic for about 7 years previously. Patient states that she has improve with triple inhalers in the Pulmonary Clinic. 10/17 Currently patient with a exacerbation and has improved with Solu-Medrol, albuterol and ipratropium nebulizers, and ceftriaxone and azithromycin for possible pneumonia. Patient states she is 50% better than yesterday. There is no evidence of hypercarbic respiratory failure with her ABG on 3 L of 7.45/. Patient still with mild end expiratory wheezes but given her clinical improvement I will decrease her Solu-Medrol from 60 Q 8 to 20 mg IV q.6 hours, I will change her albuterol nebs to 2.5 mg Q 6 hours and continue her ipratropium at 0.5 mg nebs q.6 hours. Continue montelukast and azalasting nesal spray for now. Chest x-ray without any focal infiltrates and her white blood cell count was 12. She denied fever chills at home. I will continue ceftriaxone and azithromycin pending blood cultures. Will deescalate to azithromycin for 5 days for a tracheobronchitis if blood cultures remain negative at 48 hours. I have when the patient to room air this morning and her room air oxygen saturations are 95%. Goal saturation greater than 90%. (2) Obstructive sleep apnea: Code(s): G47.33 - Obstructive sleep apnea (adult) (pediatric) Status: Acute Assessment and Plan: Patient states she has been wearing CPAP for many years with pressure of 13 on room air with a full face mask. Patient tolerates this well and states she has good clinical benefit. [place] at clinic on 07/28/20 was 7. Patient states [employer] is her [employer] company and I will contact them to try to receive a current download. Patient wore hospital CPAP 13 but stated there was a large leak with the hospital mask. Patient's has brought in her tubing and mask and tonight will use the hospital CPAP 13 with patient's tubing and mask. Subjective Date/time seen: 10/18/20 17:56 Yun Rodriguez is a 60-year-old woman with a history of asthma / COPD overlap syndrome, obstructive sleep apnea on CPAP 13 presented to the emergency department on 10/16 with about 2 weeks worsening shortness of breath. Patient is followed in the Pulmonary Clinic and had called for COPD/asthma exacerbation and received 2 prednisone tapers. She did not improve and was instructed to go to ED on 10/16. In the emergency department the patient had diffuse bilateral wheezes, WBC 12 k 10.1% eos, ABG on 3 L/min pH 7.45/31/69/ serum bicarbonate 21/94.9%. Her saturations on 2 L nasal cannula was 94%. She was treated with bronchodilators, Solu-Medrol, ceftriaxone and azithromycin. Patient improved over the next 1-2 hours in the emergency department and was admitted to the floor. 10/17 At home patient states that whenever she stopped her prednisone she would get sick in the next 1-2 days. Patient denied any fever, chills but did have cough and some greenish phlegm. Patient also had audible wheezes that she could hear. Patient was COVID vaccinated approximately 2 months ago. Patient states that she is improved today. Patient states she is 50% better. Her audible wheezing is gone and her phlegm is g
[2020-10-19] VITALS (9 sets, daily range): BP systolic 107–141; BP diastolic 50–64; PULSE 51–82; RESP 15–20; TEMP 36.1–36.4; O2SAT 95–99
[2020-10-19] MEDS: ALBUTEROL SULFATE NEB 2.5 MG/0.5 ML INH INHALATION ×3 (02:10→13:54)
[2020-10-19] MEDS: IPRATROPIUM BR 0.02% INH SOLN 0.5 MG/2.5 ML VIAL INHALATION ×3 (02:11→13:54)
[2020-10-19 05:59] LABS: Anion Gap 8 mmol/L (8-16); Blood Urea Nitrogen 19 mg/dL (7-17); Calcium 8.8 mg/dL (8.4-10.2); Carbon Dioxide 25 mmol/L (22-30); Chloride 105 mmol/L (98-107); Estimated CRCL calculation 64 ml/min; Estimated Glomerular Filt Rate > 60; Glucose 92 mg/dL (65-105); Magnesium 2.3 mg/dL (1.6-2.3); Potassium 4.5 mmol/L (3.4-5.0); Sodium 138 mmol/L (137-145)
[2020-10-19] MEDS: AZELASTINE HCL NASAL 0.1% 137 MCG/SPR 30 ML BTL 1 SPRAY NASAL (07:59)
[2020-10-19] MEDS: MONTELUKAST SODIUM 10 MG TABLET PO (07:59)
[2020-10-19] MEDS: ATORVASTATIN 40 MG TABLET 80 MG PO (07:59)
[2020-10-19] MEDS: VALSARTAN 160 MG TABLET PO (07:59)
[2020-10-19] MEDS: PANTOPRAZOLE 40 MG TABLET PO (07:59)
[2020-10-19] MEDS: predniSONE 40 MG, predniSONE 10 MG 50 MG PO (08:00)
--- NOTE | 2020-10-19 14:14 | PM.DS ---
DS: Admitting Diagnosis Admitting Diagnosis Admitting Diagnosis: SOB DS: Discharge Diagnosis Discharge Diagnosis (1) Acute exacerbation of chronic obstructive airways disease: Code(s): J44.1 - Chronic obstructive pulmonary disease with (acute) exacerbation Status: Acute Assessment and Plan: Patient is a 60-year-old woman with a history of emphysema, tobacco abuse, who presents emergency room with worsening shortness of breath over the last 2 weeks. The patient has taken 2 different steroid tapers without much improvement. She came in due to worsening shortness of breath and unable to walk around her house without becoming severely dyspneic. Was afebrile, tachycardic at 110, increased respiratory rate at 38, elevated blood pressure 155/100, oxygen saturation 96% on 3 L via nasal cannula. Initial labs showed Showed leukocytosis at 12,000, elevated eosinophils, ABG showed respiratory alkalosis. BMP showed slightly elevated creatinine 1.1. Troponin normal. Lactic acid was elevated at 3.1, improved with IV fluids. Urinalysis showed no acute signs of infection. Chest x-ray showed emphysema but no acute signs of an infection. Was admitted into the hospital for acute respiratory failure with hypoxemia, COPD exacerbation and a consultation to pulmonology. Patient was placed on IV Solu-Medrol q.6, DuoNebs q.6 as well as IV antibiotics for community-acquired pneumonia Pulmonology evaluated the patient and decreased her solu medrol to prednisone over the first few days. She was tolerating prednisone well, breathing treatments. Discussed with Pulmonology that antibiotics can be discontinued, does not believe she has pneumonia, just COPD exacerbation. Wheezing resolved. She was stable for discharge to continue prednisone taper, Trelegy and breathing treatments as needed. 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 patient is discharged in stable condition. (2) Essential hypertension: Code(s): I10 - Essential (primary) hypertension Status: Acute Assessment and Plan: BP 141/64. Told to check BP at home and follow up with PCP with adjustments if necessary. (3) Tobacco abuse: Code(s): Z72.0 - Tobacco use Status: Acute Assessment and Plan: We have discussed smoking cessation for approximately 5 minutes. Patient is ready to quit smoking upon discharge. (4) Obstructive sleep apnea: Code(s): G47.33 - Obstructive sleep apnea (adult) (pediatric) Status: Acute Assessment and Plan: The patient doing well with her CPAP at night (5) Hyperlipidemia: Code(s): E78.5 - Hyperlipidemia, unspecified Status: Acute Assessment and Plan: Continue with home medications. She is on atorvastatin. (6) GERD (gastroesophageal reflux disease): Code(s): K21.9 - Gastro-esophageal reflux disease without esophagitis Status: Acute Assessment and Plan: Continue with home medication. DS: Summary Hospital Course Hospital Course: See above Status at Discharge Cognitive/behavioral status at discharge: Stable, improved. Time Spent with Patient Time attestation: Total time spent providing and/or coordinating discharge services: 42 Time spent: Greater than 30 minutes Exam Narrative: Exam Narrative: General: 60 year-old woman sitting up in bed, watching TV. Appears comfortable. In no acute distress. Skin: No jaundice or cyanosis. Good skin turgor. Neck: Full range of motion. Supple. Respiratory: Improved lung sounds throughout, no wheezing, rales or rhonchi auscultated. No bony chest wall tenderness. Cardiovascular: The heart has a regular rate and rhythm without murmur. Lower extremities: No lower extremity edema. Distal pulses are easily palpated. No calf tenderness to palpation. Gastrointestinal: The abdomen is soft, nontender and nondistended with active bowel sounds.
--- NOTE | 2020-10-19 14:19 | PM.PNPUL ---
Progress Note: A&P Assessment and Plan (1) Asthma-COPD overlap syndrome: Code(s): J44.9 - Chronic obstructive pulmonary disease, unspecified Status: Acute Assessment and Plan: Patient carries a diagnosis of asthma COPD overlap syndrome with eosinophilia on presentation of 1212/uL and she also has apical predominant moderate paraseptal emphysema and mild centrilobular emphysema on her CT scan from 10/06 2019. PFT's from 04/30/2018 demonstrate a mildly concave expiratory flow tracing with a FEV1: FVC ratio of 75% and a normal FEV1 with air trapping And a decreased absolute diffusion capacity. She was steroid dependent inpulmonary clinic for about 7 years previously. Patient states that she has improve with triple inhalers in the Pulmonary Clinic. 10/17 Currently patient with a exacerbation and has improved with Solu-Medrol, albuterol and ipratropium nebulizers, and ceftriaxone and azithromycin for possible pneumonia. Patient states she is 50% better than yesterday. There is no evidence of hypercarbic respiratory failure with her ABG on 3 L of 7.45/. Patient still with mild end expiratory wheezes but given her clinical improvement I will decrease her Solu-Medrol from 60 Q 8 to 20 mg IV q.6 hours, I will change her albuterol nebs to 2.5 mg Q 6 hours and continue her ipratropium at 0.5 mg nebs q.6 hours. Continue montelukast and azalasting nesal spray for now. Chest x-ray without any focal infiltrates and her white blood cell count was 12. She denied fever chills at home. I will continue ceftriaxone and azithromycin pending blood cultures. Will deescalate to azithromycin for 5 days for a tracheobronchitis if blood cultures remain negative at 48 hours. I have when the patient to room air this morning and her room air oxygen saturations are 95%. Goal saturation greater than 90%. (2) Obstructive sleep apnea: Code(s): G47.33 - Obstructive sleep apnea (adult) (pediatric) Status: Acute Assessment and Plan: Patient states she has been wearing CPAP for many years with pressure of 13 on room air with a full face mask. Patient tolerates this well and states she has good clinical benefit. [place] at clinic on 07/28/20 was 7. Patient states [employer] [facility] is her [employer] company and I will contact them to try to receive a current download. Patient wore hospital CPAP 13 but stated there was a large leak with the hospital mask. Patient's has brought in her tubing and mask and tonight will use the hospital CPAP 13 with patient's tubing and mask. Subjective Date/time seen: 10/19/20 14:19 Yun Rodriguez is a 60-year-old woman with a history of asthma / COPD overlap syndrome with an exacerbation. She is much better, wants to go home today. She says that she was on an injectable medication several years ago when she was a patient of Dr Montero; probably IVIG. She has not been on for years. SHe had recurrent infections, does not have these any longer. obstructive sleep apnea on CPAP 13 presented to the emergency department on 10/16 with about 2 weeks worsening shortness of breath. Patient is followed in the Pulmonary Clinic and had called for COPD/asthma exacerbation and received 2 prednisone tapers. She did not improve and was instructed to go to ED on 10/16. In the emergency department the patient had diffuse bilateral wheezes, WBC 12 k 10.1% eos, ABG on 3 L/min pH 7.45/31/69/ serum bicarbonate 21/94.9%. Her saturations on 2 L nasal cannula was 94%. She was treated with bronchodilators, Solu-Medrol, ceftriaxone and azithromycin. Patient improved over the next 1-2 hours in the emergency department and was admitted to the floor. 10/17 At home patient states that whenever she stopped her prednisone she would get sick in the next 1-2 days. Patient denied any fever, chills but di
--- NOTE | 2020-10-24 09:01 | PC.NURSE ---
Blood cx are negative.
== END 2020-10-19 15:35 | disposition home or self-care (01) | DRG 190 ==
LOC: ANHED 10:19 → ANHIMU 13:45 → ANH2MED 10-18 17:51 → ANHIMU 10-20 16:11
PROVIDERS: Nurse Practitioner; Admitting Provider Internal Medicine; Emergency Provider Emergency Medicine; PCP Internal Medicine; Visit Provider Physician Assistant
DX: J44.1 Chronic obstructive pulmonary disease with (acute) exacerbation (principal); J96.01 Acute respiratory failure with hypoxia; G47.33 Obstructive sleep apnea (adult) (pediatric); K21.9 Gastro-esophageal reflux disease without esophagitis; I10 Essential (primary) hypertension; Z72.0 Tobacco use; E78.5 Hyperlipidemia, unspecified
CPT/HCPCS: 36415; 36600; 71045; 80048; 80053; 80307; 81001; 82375; 82805; 83050; 83605; 83735; 84132; 84439; 84443; 84480; 84484; 85025; 85027; 87040; 93005; 94640; 96365; 96375; 99291; A9270; J0456; J0696; J2920; J2930; J3475; J7030; J7512

== ENCOUNTER 2020-11-29 07:47 | Outpatient (CLI) | payer MEDICARE, MEDICAID, SELFPAY ==
[2020-11-29 08:35] LABS: Basophils Absolute Auto 0.1 K/mm3 (0.0-0.1); Eosinophils Absolute Auto 0.9 K/mm3 (0-0.3); Eosinophils Percent Auto 8.3 % (0-4.4); Hematocrit 42.1 % (37.0-47.0); Hemoglobin 13.5 g/dL (12.0-15.0); Immature Granulocyte Absolute 0.04 K/mm3 (0.00-0.031); Immature Granulocyte Percent A 0.4 % (0-0.5); Lymphocytes Absolute Auto 3.38 K/mm3 (0.9-3.2); Lymphocytes Percent Auto 32.5 % (18.3-44.2); Mean Corpuscular HGB Conc 32.1 g/dl (32-36); Mean Corpuscular Hemoglobin 32.4 pg (26-34); Monocytes Percent Auto 9.2 % (2.6-8.5); Neutrophils Absolute Auto 5.1 K/mm3 (1.3-6.7); Neutrophils Percent Auto 48.6 % (45.5-73.1); Platelet Count Result 262 k/mm3 (150-375); Red Blood Count 4.17 M/mm3 (4.2-5.4); Red Cell Distribution Width 14.2 % (11.5-14.5); White Blood Count 10.4 K/mm3 (4.5-10.0)
[2020-12-03 20:41] LABS: Immunoglobulin E 1412 kU/L (<=114)
== END 2020-11-29 07:48 | disposition home or self-care (01) ==
PROVIDERS: PCP Internal Medicine; Visit Provider Nurse Practitioner Family
DX: J44.9 Chronic obstructive pulmonary disease, unspecified (principal)
CPT/HCPCS: 36415; 82785; 85025

== ENCOUNTER 2021-03-13 09:58 | Outpatient (CLI) | payer OTHER, SELFPAY ==
--- NOTE | ~2021-03-13 | CT_ITS ---
EXAMINATION: CT lung screening DATE: 03/13/2021 10:13 INDICATION: Personal history of nicotine dependence, current smoker with 30 pack year history TECHNIQUE: Computed tomography (CT) of the chest was performed without intravenous contrast. The dose -length product (DLP) was 146.34 mGy-cm. Automated exposure control and iterative reconstruction tech Dejamor were employed. COMPARISON: 10/06/2019 FINDINGS: There is mild emphysema. The lungs are free of acute opacities. Small stable nodules of the upper lobes measure 1 to 2 mm. No new or suspicious pulmonary nodule is identified. There is no pleu ral effusion or pneumothorax. No pathologically enlarged thoracic lymph nodes are identified. The hea rt size is normal. Calcified bilateral breast implants are noted. There is moderate thoracic spondylo sis. Neurostimulator leads end posteriorly in the epidural space at the level of the T8 vertebral bod y. IMPRESSION: 1. Lung-RADS category 2: Benign appearance or behavior. Continue annual screening with noncontrast lo w-dose chest CT in 12 months. Reviewed, dictated and finalized at location B. IMPRESSION: 1. Lung-RADS category 2: Benign appearance or behavior. Continue annual screeni ng with noncontrast low-dose chest CT in 12 months.
== END 2021-03-13 09:59 | disposition home or self-care (01) ==
LOC: ANHIMG 10:01
PROVIDERS: PCP Internal Medicine; Visit Provider Nurse Practitioner Family
DX: Z87.891 Personal history of nicotine dependence (principal)
CPT/HCPCS: 71271

== ENCOUNTER 2022-01-04 09:17 | Outpatient (CLI) | payer OTHER, SELFPAY ==
--- NOTE | 2022-01-04 12:42 | WPDSIXMINUTE ---
Six Minute Walk Procedure Procedure Performed Pulmonary Stress Test (6 min walk) Six Minute Walk Six Minute Walk: This is a 6 minute walk test. The test was performed and interpreted in accordance with the 2014 ERS/ATS task force guidelines. Of note the patient stopped her test at 4 minutes and 30 seconds due to shortness of breath and back pain. Findings: The patient's resting room air oxygen saturation measured by pulse oximetry was 97% and heart rate was 94 bpm. Patient ambulated for 152 meters and oxygen saturation remained 95 to 98%. Heart rate at the end of the study was 122 bpm. The patient did not qualify for supplemental oxygen at rest or with ambulation. There are no prior studies for comparison.
--- NOTE | 2022-01-04 12:44 | WPDPFTINT ---
PFT Procedure Performed PFT Procedure Performed Spirometry with Pre/Post Bronchodilator Plethysmography (Lung Vol) Diffusing Cap (DLCO) Flow Vol Loop PFT Interpretation This is a pulmonary function test with pre and post-bronchodilator spirometry, plethysmography and diffusing capacity. The test was performed and results interpreted in accordance with the 2019 and 2005 ATS/ERS Task Force guidelines respectively using the Global Lung Function Initiative-2012 reference equations. Patient demonstrated good effort and cooperation. Reproducibility criteria were met. The quality of the pre bronchodilator spirometry maneuver was Grade A and post bronchodilator spirometry maneuver was Grade A. Findings: Spirometry: There is decreased maximal expiratory airflow at low lung volumes with concave expiratory flow tracing. The pre bronchodilator FVC is 2.93 L, 96% predicted. The pre bronchodilator FEV1 is 1.98 L, 82% predicted. The pre bronchodilator FEV1: FVC ratio 68%. The post bronchodilator FVC is 3.17 L, representing an 8% increase. The post bronchodilator FEV1 is 2.11 L, representing a 7% increase. The post bronchodilator FEV1: FVC ratio was 67. Plethysmography: The total lung capacity is 5.11 L, 104% predicted. The functional residual capacity is 3.21 L, 116% predicted. The residual volume is 2.01 L, 104% predicted. Diffusion capacity: The diffusing capacity unadjusted for hemoglobin and carboxyhemoglobin is 15.4, 73% predicted. The diffusing capacity adjusted for alveolar volume is 3.88, 86% predicted. In comparison to previous pulmonary function tests on 04/30/2018 the post bronchodilator FVC is unchanged from 2.90 L to 3.17 L. The post bronchodilator FEV1 is unchanged from 2.09 L to 2.11 L. The total lung capacity is unchanged from 5.46 L to 5.11 L. Functional residual capacity is unchanged from 3.38 L to 3.21 L. The residual volume is decreased from 2.60 L to 2.01 L. The diffusing capacity unadjusted for hemoglobin and carboxyhemoglobin is unchanged from 15.4 to 15.4. The diffusing capacity adjusted for alveolar volume is unchanged from 3.88 to 3.47. Impression: There is a mild obstructive abnormality with a normal FEV1 and without significant improvement after inhaling a single dose of albuterol. The lung volumes are normal. The diffusing capacity is normal. in comparison to previous pulmonary function test on 04/30/2018 there has been a greater than anticipated time dependent decrease in the residual volume with no significant change in the FVC, FEV1, total lung capacity, functional residual capacity or diffusing capacity. Clinical correlation is recommended.
== END 2022-01-04 09:18 | disposition home or self-care (01) ==
PROVIDERS: PCP Internal Medicine; Visit Provider Internal Medicine Critical Care Medicine
DX: J44.9 Chronic obstructive pulmonary disease, unspecified (principal); R94.2 Abnormal results of pulmonary function studies
CPT/HCPCS: 94060; 94618; 94726; 94729

== ENCOUNTER 2022-03-25 14:55 | Outpatient (CLI) | payer OTHER, SELFPAY ==
--- NOTE | ~2022-03-25 | CT_ITS ---
EXAMINATION: CT lung screening DATE: 03/25/2022 15:43 INDICATION: Personal history nicotine dependence, current smoker with 60 pack year history TECHNIQUE: Computed tomography (CT) of the chest was performed without intravenous contrast. The dose -length product (DLP) was 82.77 mGy-cm. Automated exposure control and iterative reconstruction techn [employer] were employed. COMPARISON: 03/13/2021 FINDINGS: There is mild emphysema. Again noted are multiple small stable pulmonary nodules which karin ure 1 to 2 mm. No pleural effusion or pneumothorax. No pathologically enlarged thoracic lymph nodes a re identified. The heart size is normal. Bilateral breast implants are noted. There is moderate thora cic spondylosis. Neurostimulator leads are again noted posteriorly in the epidural space. IMPRESSION: 1. Lung-RADS category 2: Benign appearance or behavior. Continue annual screening with noncontrast lo w-dose chest CT in 12 months. Reviewed, dictated and finalized at location F. ILE MILL OPERATOR TAPE CONTROL IMPRESSION: 1. Lung-RADS category 2: Benign appearance or behavior. Continue annual screeni ng with noncontrast low-dose chest CT in 12 months.
--- NOTE | ~2022-03-25 | MM_ITS ---
EXAMINATION: MM scrn emily implant BI w raman HISTORY: Screening mammogram TECHNIQUE: Craniocaudal and mediolateral oblique 3-D tomosynthesis images with implant displacement a nd synthetic 2-D images were generated. Craniocaudal and mediolateral oblique views of the breasts wi thout implant displacement were obtained using full field digital mammography. CAD analysis was submi tted and interpreted. COMPARISON: Comparison to multiple prior studies sequentially, with oldest reviewed study dated 12/2013. BREAST PARENCHYMAL COMPOSITION: There are scattered areas of fibroglandular density. FINDINGS: There are bilateral subglandular silicone implants with capsular calcification. There is po ssible extracapsular rupture inferiorly in the right breast implant. There is a focal asymmetry later ally in the left breast adjacent to the implant on CC view. IMPRESSION: 1. New focal left breast asymmetry laterally in the left breast adjacent to the implant on CC view. 2. Possible extracapsular right breast implant rupture. Consider correlation with MRI. 3.: Additional spot compression and mediolateral views with possible follow-up left breast ultrasound recommended. BI-RADS CATEGORY 0 - INCOMPLETE STUDY, NEED ADDITIONAL IMAGING EVALUATION. Reviewed, dictated and finalized at location A. [employer] SHELLER IMPRESSION: 1. New focal left breast asymmetry laterally in the left breast adjacent to the implant on CC view. 2. Possible extracapsular right breast implant rupture. Consider correlation wi MRI. 3.: Additional spot compression and mediolateral views with possible follow-up left breast ultrasound recommended. BI-RADS CATEGORY 0 - INCOMPLETE STUDY, NEED ADDITIONAL IMAGING EVALUATION.
--- NOTE | ~2022-03-25 | DEXA_ITS ---
Bone Density Report Name: LISA JEFFRIES Age: 62 Sex: Female Ethnicity: White Date of : 1960 Indication: postmenopausal; screening for osteoporosis; height loss; prior fracture; asthma or emphysema; Referring Provider: LEORA TOSCANO Study: Bone densitometry was performed. Exam Date: March 25, 2022 Accession number: [id number] Bone Density: Region BMD T-score Z-score Classification AP Spine(L1, L2) 0.991 0.1 1.5 Normal Femoral Neck (Left) 0.744 -0.9 0.4 Normal Total Hip (Left) 0.866 -0.6 0.4 Normal Femoral Neck (Right) 0.703 -1.3 0.0 Osteopenia Total Hip (Right) 0.817 -1.0 0.0 Normal Total Hip Mean 0.841 -0.8 0.2 Normal World Health Organization criteria for BMD impression classify patients as: Normal (T-score at or above -1.0), Osteopenia (T-score between -1.0 and -2.5), or Osteoporosis (T-score at or below -2.5). 10-year Fracture Risk: FRAX not reported because: Prior hip or vertebral fracture Clinical Information Provided by Patient: Have had a previous hip or vertebral fracture Has had a low trauma fracture Smokes Has used the following medications: Calcium Has the following medical conditions: Asthma or Emphysema Patient maximum height was 65 Menopause Age: 42 No regular weight bearing exercise Onset of menses at age 13 Number of children 2 Impression: The patient has low bone mass, based on the Right Femoral Neck T-score. The patient has risk factors, including: smoking, previous fracture. Discussion: INCREASED RISK OF FRACTURE DUE TO HISTORY OF FRACTURE. The patient's previous fracture puts the patient at high risk of a future fracture. In untreated patients, the risk of osteoporotic fracture increases approximately two-fold for each 1.0 SD decrease in T-score. Low bone density is not the only risk factor for fracture; also consider factors such as patient's age, frailty or poor health, risk of falling, risk of injury, previous osteoporotic fracture, family history of osteoporosis, cigarette smoking, low body weight, etc. Not everyone with a low trauma fracture has osteoporosis; osteomalacia and other metabolic bone disorders should also be considered. Patients who have osteoporosis should be evaluated for specific diseases and conditions (secondary causes) that may cause or contribute to bone loss and fracture risk. National Osteoporosis Foundation (NOF) recommends pharmacologic intervention for patients with a prior hip or vertebral fracture regardless of BMD T-score. The patient should follow a healthful lifestyle (good nutrition with adequate calcium and vitamin D, and appropriate weight-bearing exercise). Follow-Up: Consider a repeat BMD and Vertebral Fracture Assessment (VFA) exam in 2 years or sooner if medically necessary, to reassess this patient's status.
== END 2022-03-25 14:56 | disposition home or self-care (01) ==
PROVIDERS: PCP Internal Medicine; Visit Provider Nurse Practitioner
DX: Z12.31 Encounter for screening mammogram for malignant neoplasm of breast (principal); Z78.0 Asymptomatic menopausal state; Z87.891 Personal history of nicotine dependence; R92.8 Other abnormal and inconclusive findings on diagnostic imaging of breast; M85.851 Other specified disorders of bone density and structure, right thigh
CPT/HCPCS: 71271; 77063; 77067; 77080

== ENCOUNTER 2023-01-21 01:34 | Day surgery (SDC) | payer OTHER, SELFPAY ==
[2023-01-07 14:46] VITALS: BMI 26.2
--- NOTE | 2023-01-20 09:56 | WPDANESEPPF ---
Anes - Initial Pre Proc Eval Procedure: Operation Date: 01/21/23 07:30 Proposed Procedures p Colonoscopy - Benjamín Marino MD Date/Time: 01/20/23 09:56 Surgeon: Benjamín Marino MD Pre Op Diagnosis: personal hx of colon polyps Patient Data Age: 62 Gender: F Height: 1.6 m Weight: 67 kg Allergies Allergy/AdvReac Type Severity Reaction Status Date / Time Iodinated Contrast Media Allergy Mild hives Verified 01/21/23 06:17 Penicillins Allergy Mild Hives,Unkno Verified 01/21/23 06:17 wn glucose [From Gammagard S/D] AdvReac Severe Migraine Verified 01/21/23 06:17 glycine [From Gammagard S/D] AdvReac Severe Migraine Verified 01/21/23 06:17 IgA less than or equal to 50 AdvReac Severe Migraine Verified 01/21/23 06:17 mcg/mL [From Gammagard S/D] immune globulin,gamma (IgG) AdvReac Severe Migraine Verified 01/21/23 06:17 human [From Gammagard S/D] prevagen AdvReac Severe Migraine Uncoded 01/21/23 06:17 Home Medications Medication Instructions Recorded Confirmed Type benralizumab 30 mg/mL subcutaneous 30 mg subcut DIRECTED 08/15/21 01/07/23 History auto-injector (Fasenra Pen) clotrimazole 1 % topical ointment 1 applic topical BID #56.7 grams 08/17/21 01/07/23 Rx albuterol sulfate 2.5 mg/3 mL 2.5 mg (3 mL) inhalation QID PRN 02/11/22 01/07/23 Rx (0.083 %) solution for nebulization shortness of breath or wheezing #360 mL atorvastatin 80 mg tablet 80 mg PO DAILY #90 tabs 02/13/22 01/07/23 Rx calcium carbonate 500 mg calcium 500 mg PO DAILY #90 tabs 04/05/22 01/07/23 Rx (1,250 mg) chewable tablet (Calcium 500) cholecalciferol (vitamin D3) 25 25 mcg PO DAILY #90 tabs 04/05/22 01/07/23 Rx mcg (1,000 unit) tablet valsartan 160 mg tablet 160 mg PO DAILY #90 tabs 07/30/22 01/07/23 Rx omeprazole 40 mg capsule,delayed 40 mg PO DAILY #90 caps 08/12/22 01/07/23 Rx release albuterol sulfate 90 mcg/actuation See Rx Instructions .Route 08/13/22 01/07/23 Rx aerosol inhaler .COMPLEX #18 ea fluticasone fur. 200 mcg-umeclid 1 inh inhalation DAILY #60 ea 11/04/22 01/07/23 Rx 62.5 mcg-vilant 25 mcg inhalat.powder (Trelegy Ellipta) IgG 20 gram/200 mL (10 200 ml subcut USEASDIRECTD 01/07/23 01/07/23 History %)-hyaluronidase,recomb. subcutaneous solution (HyQvia) celecoxib 200 mg capsule 200 mg PO DAILY 01/07/23 01/07/23 History gabapentin 100 mg capsule 100 mg PO TID 01/07/23 01/07/23 History montelukast 10 mg tablet 10 mg PO DAILY 01/07/23 01/07/23 History roflumilast 500 mcg tablet 500 mcg PO DAILY 01/07/23 01/07/23 History Patient hx anesthesia problems: none Family hx anesthesia problems: none Results Review: All pre-operative results and documents have been reviewed as part of the pre-operative evaluation. [facility] Past Medical History Medical History Abnormal LFTs Adverse effect of glucocorticoids and synthetic analogues, initial encounter Avascular necrosis due to adverse effect of steroid therapy Avascular necrosis of medial condyle of left femur AVN (avascular necrosis of bone) Cerebrovascular accident (CVA) Chronic pain syndrome COPD (chronic obstructive pulmonary disease) CVA (cerebral vascular accident) No residual deficits. Degenerative joint disease of knee Depression GERD (gastroesophageal reflux disease) Hyperlipidemia Hypertension Neuropathy Obstructive sleep apnea Postmenopausal Screening for breast cancer Screening for colon cancer Smoking Tobacco abuse Wound dehiscence Surgical History Surgical History Presence of left artificial knee joint S/P total knee arthroplasty Status post bilateral knee replacements Status post breast augmentation Status post cataract extraction Status post insertion of spinal cord stimulator Status post tubal ligation Family History Family History (Reviewed 05/29/22 @ 08:45
[2023-01-21 06:19] VITALS: BP 133/68; PULSE 84; RESP 18; TEMP 36.2; O2SAT 99
[2023-01-21] MEDS: LACTATED RINGERS 1,000 ML 150 ML IV CONT (06:27)
--- NOTE | 2023-01-21 07:28 | PM.HPGS ---
History of Present Illness History of Present Illness Consent: Risks, benefits, and alternatives have been discussed and questions answered. Patient agrees to proceed with procedure. Chief complaint: personal hx of colon polyps Narrative: Yun Rodriguez is a 62 year old female with colon polyp in 2019 Review of Systems Constitutional: Constitutional: Denies headache(s) and Denies weakness Eyes: Eyes: Denies blurry vision ENT: Reports Normal hearing present, Denies headache(s) and Denies neck pain Cardiovascular: Cardiovascular: Denies chest pain and Denies dyspnea Respiratory: Respiratory: Denies dyspnea Gastrointestinal: Gastrointestinal: Reports no additional gastrointestinal complaints Genitourinary: Genitourinary: Denies dysuria Musculoskeletal: Musculoskeletal: Denies neck pain Integumentary/Breasts: Skin/Breast: Denies dry skin Neurologic: Reports Normal hearing present, Denies headache(s) and Denies weakness Psychiatric: Psychiatric: Denies anxiety Endocrine: Endocrine: Denies change in body appearance Hematologic/Lymphatic: Hematologic/Lymphatic: Denies easy bleeding Allergic/Immunologic: Allergic/Immunologic: Denies urticaria PMFSH Past Medical History Medical History (Updated 01/21/23 @ 07:28 by Benjamín Marino MD) Abnormal LFTs Adenomatous colon polyp Adverse effect of glucocorticoids and synthetic analogues, initial encounter Avascular necrosis due to adverse effect of steroid therapy Avascular necrosis of medial condyle of left femur AVN (avascular necrosis of bone) Cerebrovascular accident (CVA) Chronic pain syndrome COPD (chronic obstructive pulmonary disease) CVA (cerebral vascular accident) No residual deficits. Degenerative joint disease of knee Depression GERD (gastroesophageal reflux disease) Hyperlipidemia Hypertension Neuropathy Obstructive sleep apnea Postmenopausal Screening for breast cancer Screening for colon cancer Smoking Tobacco abuse Wound dehiscence Surgical History Surgical History Presence of left artificial knee joint S/P total knee arthroplasty Status post bilateral knee replacements Status post breast augmentation Status post cataract extraction Status post insertion of spinal cord stimulator Status post tubal ligation Family History Family History Sibling Asthma Mother Family history of lung cancer Patient's mother is Hypertension Father Family history of lung cancer Patient's father is Social History Social History Social History: Mehul as her surrogate decision maker. She wishes to be a full code. The patient has 2 children. She is retired from being a outside b2b sales. The patient is still smoking cigarettes. The patient denies any alcohol but she does admit to using marijuana gummies Smoking packs per day: 1 Smoking cigarettes per day: 20.0 Years smoked: 40 Smoking pack-years: 40.00 Smoking status: Current every day smoker Tobacco type: cigarettes Alcohol intake: current Alcohol use details: social Substance use: never Substance use type: does not use and marijuana Other substance usage details: edibles; 1-2 times weekly Living arrangements: with family Gender identity (if verbalized by the patient): Female Spiritual care concerns: No Agree to blood products: Yes Meds Home Medications and Allergies Home Medications Medication Instructions Recorded Confirmed Type benralizumab 30 mg/mL subcutaneous 30 mg subcut DIRECTED 08/15/21 01/07/23 History auto-injector (Fasenra Pen) clotrimazole 1 % topical ointment 1 applic topical BID #56.7 grams 08/17/21 01/07/23 Rx albuterol sulfate 2.5 mg/3 mL 2.5 mg (3 mL) inhalation QID PRN 02/11/22 01/07/23 Rx (0.083 %) solution for nebulization shortness of b
[2023-01-21 07:56] VITALS: BP 145/67; PULSE 69; RESP 21; O2SAT 100
[2023-01-21 08:06] VITALS: BP 127/74; PULSE 69; RESP 19; O2SAT 100
[2023-01-21 08:16] VITALS: BP 122/76; PULSE 70; RESP 18; O2SAT 100
== END 2023-01-21 08:20 | disposition home or self-care (01) ==
PROVIDERS: PCP Family Medicine; Visit Provider Internal Medicine Gastroenterology
PROC: 0DJD8ZZ Inspection of Lower Intestinal Tract, Via Natural or Artificial Opening Endoscopic (ICD-10-PCS; CPT 45378; principal; 2023-01-21 07:30)
DX: Z12.11 Encounter for screening for malignant neoplasm of colon (principal); K63.5 Polyp of colon; K64.8 Other hemorrhoids; J44.9 Chronic obstructive pulmonary disease, unspecified; F32.A Depression, unspecified; K21.9 Gastro-esophageal reflux disease without esophagitis; E78.5 Hyperlipidemia, unspecified; I10 Essential (primary) hypertension; G62.9 Polyneuropathy, unspecified; G47.33 Obstructive sleep apnea (adult) (pediatric); Z79.620 Long term (current) use of immunosuppressive biologic; Z79.51 Long term (current) use of inhaled steroids; Z86.73 Personal history of transient ischemic attack (TIA), and cerebral infarction without residual deficits; F17.210 Nicotine dependence, cigarettes, uncomplicated; F12.90 Cannabis use, unspecified, uncomplicated
CPT/HCPCS: 45385; 88305; J2704; J7120

== ENCOUNTER 2023-03-26 09:19 | Outpatient (CLI) | payer OTHER, SELFPAY ==
--- NOTE | ~2023-03-26 | CT_ITS ---
CT Scan of the Chest without Contrast: Clinical Indication: Lung cancer screening, personal history of nicotine dependence Technique: Contiguous sections were acquired throughout the chest without intravenous contrast. Dose reduction technique was used on this scan by utilizing automated exposure control and iterative recon struction technique. The dose-length product (DLP) was 83.57 mGy-cm. COMPARISON: 03/25/2022, 03/13/2021 Findings: There is no evidence of any significant mediastinal, hilar or axillary lymphadenopathy. There are ath erosclerotic calcifications of the aorta and coronary arteries.. There is no evidence of pleural or pericardial effusion. The lungs are clear. No pulmonary nodules or infiltrates are noted. Emphysematous change noted, parti cularly left upper lobe. Images through the upper abdomen reveal no abnormalities. Impression: Lung RADS 1: Negative. 12 month follow-up screening CT advised. Reviewed, dictated and finalized at [facility]. IANCE REPAIR TECHNICIAN Impression: Lung RADS 1: Negative. 12 month follow-up screening CT advised.
== END 2023-03-26 09:20 | disposition home or self-care (01) ==
PROVIDERS: PCP Family Medicine; Visit Provider Nurse Practitioner Family
DX: Z12.2 Encounter for screening for malignant neoplasm of respiratory organs (principal); Z87.891 Personal history of nicotine dependence
CPT/HCPCS: 71271

== ENCOUNTER 2023-05-21 15:35 | Outpatient (CLI) | payer OTHER, SELFPAY ==
--- NOTE | ~2023-05-21 | XR_ITS ---
XR chest 2V DATE: 05/21/2023 15:48 INDICATION: Cough TECHNIQUE: PA and lateral views COMPARISON: 03/26/2023 CT lung screening FINDINGS: Prominent calcified bilateral breast implants. Two thoracic spinal electrodes are noted. Normal heart size. There is thoracic aortic arch calcification. No hilar or mediastinal enlargement. No pulmonary infiltrate or consolidation, pleural effusion or pulmonary vascular congestion or pneumo thorax is detected. Osteopenia. IMPRESSION: No active cardiopulmonary disease Reviewed, dictated and finalized at location B. IR WELDER
[2023-05-21 16:37] LABS: Influenza A QL RT-PCR Negative (Negative); Influenza B QL RT-PCR Negative (Negative); RSV RNA, RT-PCR Positive (Negative); SARS-CoV-2 RNA PCR Negative (Negative)
== END 2023-05-21 15:36 | disposition home or self-care (01) ==
PROVIDERS: PCP Family Medicine; Visit Provider Nurse Practitioner Family
DX: R06.00 Dyspnea, unspecified (principal); R06.2 Wheezing; R50.9 Fever, unspecified; R05.9 Cough, unspecified
CPT/HCPCS: 71046; 87637

== ENCOUNTER 2023-07-25 09:09 | Outpatient (CLI) | payer OTHER, SELFPAY ==
--- NOTE | ~2023-07-25 | XR_ITS ---
Left ankle Technique: AP, oblique, and lateral views were obtained. Clinical History: Pain Findings: No acute fracture or dislocation is seen. Osseous alignment is anatomic. Lesion in the dist al tibial plafond with serpiginous sclerotic border is suggestive of bone infarct. Ankle mortise and other visualized joint spaces are preserved. Soft tissues are otherwise unremarkable. Impression: No acute fracture or dislocation. 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 Reviewed, dictated and finalized at location . Impression: No acute fracture or dislocation. 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
== END 2023-07-25 09:10 | disposition home or self-care (01) ==
LOC: ANHIMG 09:16
PROVIDERS: PCP Nurse Practitioner; Visit Provider Nurse Practitioner Family
DX: S99.912A Unspecified injury of left ankle, initial encounter (principal); X58.XXXA Exposure to other specified factors, initial encounter
CPT/HCPCS: 73610

== ENCOUNTER 2023-08-21 15:33 | Outpatient (CLI) | payer OTHER, SELFPAY ==
--- NOTE | ~2023-08-21 | CT_ITS ---
EXAMINATION: CT ankle LT wo con DATE: 08/21/2023 15:51 INDICATION: Left ankle pain TECHNIQUE: High resolution computed tomography (CT) of the left ankle was performed without intraveno us contrast. Additional sagittal and coronal reconstructions were performed. Automated exposure contr ol and iterative reconstruction technique were employed. The dose-length product was 345.44 mGy-cm. COMPARISON: Radiographs dated 07/25/2023 FINDINGS: Bone alignment is normal. No fracture. There is an irregular somewhat serpiginous thin peripheral rim of sclerosis encompassing approximately 3.5 x 2.4 x 3.7 cm region in the distal left tibial metaphys is extending into the lateral aspect of the medial malleolus. Within this region there is a retained trabecular pattern. Findings would be most consistent with osteonecrosis/bone infarct. The lesion und erlies a significant portion of the articular surface of the tibial plafond and. Nondisplaced fractur e with subtle linear lucency extending across the articular cortex at the medial side of the tibial p jody. The fracture line cannot be identified along the more cephalad metaphyseal cortex and the fra cture may remain incomplete. No significant fracture gap or incongruity at the articular cortex. No o ther lesions suspicious for fracture identified. Minimal to mild polyarticular osteoarthritis at the ankle, mid and hindfoot. Minimal ankle joint effusion. There is soft tissue swelling with subcutaneou s edema overlying the medial malleolus. IMPRESSION: 1. Nondisplaced and potentially incomplete intra-articular fracture extending across the lateral side of the tibial plafond. This may be pathologic related to the presence of a large subarticular bone i nfarct/osteonecrosis in the distal tibia. Reviewed, dictated and finalized at location B. IMPRESSION: 1. Nondisplaced and potentially incomplete intra-articular fracture extending a cross the lateral side of the tibial plafond. This may be pathologic related to the presence of a large subarticular bone infarct/osteonecrosis in the distal tibia.
== END 2023-08-21 15:34 | disposition home or self-care (01) ==
PROVIDERS: PCP Nurse Practitioner; Visit Provider Orthopaedic Surgery
DX: M25.572 Pain in left ankle and joints of left foot (principal)
CPT/HCPCS: 73700

== ENCOUNTER 2024-03-31 11:11 | Outpatient (CLI) | payer OTHER, SELFPAY ==
--- NOTE | ~2024-03-31 | CT_ITS ---
CT Scan of the Chest without Contrast: Clinical Indication: Lung cancer screening, nicotine dependence Technique: Contiguous sections were acquired throughout the chest without intravenous contrast. Dose reduction technique was used on this scan by utilizing automated exposure control and iterative recon struction technique. The dose-length product (DLP) was 64.81 mGy-cm. COMPARISON: 03/26/2023 Findings: There is no evidence of any significant mediastinal, hilar or axillary lymphadenopathy. The mediastin al soft tissues appear normal. There is no evidence of pleural or pericardial effusion. The lungs are clear. No pulmonary nodules or infiltrates are noted. Moderate emphysema. Images through the upper abdomen reveal no abnormalities. Impression: Lung RADS 1: Negative. 12 month follow-up screening CT advised. Moderate emphysema. Reviewed, dictated and finalized at [facility]. PUMPING STATION OPERATOR Impression: Lung RADS 1: Negative. 12 month follow-up screening CT advised. Moderate emphysema.
== END 2024-03-31 11:12 | disposition home or self-care (01) ==
LOC: ANHIMG 11:15
PROVIDERS: PCP Family Medicine; Visit Provider Nurse Practitioner Family
DX: Z12.2 Encounter for screening for malignant neoplasm of respiratory organs (principal); Z87.891 Personal history of nicotine dependence
CPT/HCPCS: 71271

== ENCOUNTER 2024-06-02 11:23 | Outpatient (CLI) | payer OTHER, SELFPAY ==
[2024-06-02 12:03] LABS: Hematocrit 46.6 % (37.0-47.0); Hemoglobin 15.3 g/dL (12.0-15.0); Mean Corpuscular HGB Conc 32.8 g/dl (32-36); Mean Corpuscular Hemoglobin 32.7 pg (26-34); Mean Corpuscular Volume 99.6 fl (80-100); Mean Platelet Volume 10.4 fl (7.4-10.4); Platelet Count Result 333 k/mm3 (150-375); Red Blood Count 4.68 M/mm3 (4.2-5.4); Red Cell Distribution Width 12.4 % (11.5-14.5); White Blood Count 8.4 K/mm3 (4.5-10.0)
[2024-06-02 12:10] LABS: Alanine Aminotransferase 31 U/L (6-35); Albumin Level 4.4 g/dL (3.5-5.1); Alkaline Phosphatase 104 U/L (38-126); Anion Gap 12 mmol/L (4-12); Aspartate Amino Transferase 37 U/L (14-36); Bilirubin,Total 0.7 mg/dL (0.2-1.3); Blood Urea Nitrogen 10 mg/dL (7-17); Calcium 9.2 mg/dL (8.4-10.2); Carbon Dioxide 24 mmol/L (22-30); Chloride 103 mmol/L (98-107); Cholesterol 167 mg/dL (0-200); Estimated Glomerular Filt Rate > 60; Glucose 85 mg/dL (65-110); HDL Direct 96 mg/dL; Sodium 139 mmol/L (137-145); Triglycerides 86 mg/dL (<150)
[2024-06-02 12:22] LABS: LDL Cholesterol Direct 52 mg/dL
[2024-06-02 12:26] LABS: Vitamin D 25 Hydroxy 16.3 ng/mL
[2024-06-02 12:38] LABS: Thyroid Stimulating Hormone 0.408 uIU/mL (0.465-4.680)
--- OUTSIDE RECORDS SUMMARY | 2024-06-03 23:55 | XMS_ITS | Clinical Summary ---
Author Organization [facility] Address [address] [place] [address] Care Team Providers Care Lining Maker Name Role Phone Rocky Luna MD Primary Care Provider [phone] Allergies Active Allergy Reactions Criticality Noted Date Comments Penicillins Hives,Unknown Medium 12/12/2021 Medications ALBUTEROL SULFATE INHAL Inhale Active Fasenra 30 mg/mL syringe 3 Active cholecalciferol 25 mcg (1,000 unit) tablet Take 1 tablet (1,000 Units total) by mouth daily 2 Active Trelegy Ellipta 200-62.5-25 mcg inhaler INHALE 1 PUFF BY MOUTH DAILY RINSE AND SPIT 2 Active HyQvia subcutaneous infusion 3 Active montelukast (SINGULAIR) 10 mg tablet Take 1 tablet (10 mg total) by mouth daily 3 Active omeprazole (PriLOSEC) 40 mg capsule Take 1 capsule (40 mg total) by mouth daily Active roflumilast (DALIRESP) 500 mcg tablet Take 1 tablet (500 mcg total) by mouth daily Active calcium acetate,phosphat bind, (PHOSLO) 667 mg tablet Take 2 tablets (1,334 mg total) by mouth 3 (three) times a day with meals Active clotrimazole 1 % cream Apply topically 2 (two) times a day Active HYDROcodone-aceta minophen (NORCO) 10-325 mg per tabletIndications :Pain Take 1 tablet by mouth every 6 (six) hours as needed for pain 20 tablet 3 Active predniSONE (DELTASONE) 20 mg tablet 3 tabs for 3 days, then 2 tabs for 3 days, then 1 tab for 3 days 18 tablet 3 Active albuterol HFA (PROVENTIL HFA,VENTOLIN HFA,PROAIR HFA) 90 mcg/actuation inhaler INHALE 2 PUFFS BY MOUTH 4-6 TIMES A DAY NEEDED FOR SHORTNESS OF BREATH 3 Active gabapentin (NEURONTIN) 100 mg capsule Take 1 capsule (100 mg total) by mouth 3 (three) times a day 90 capsule 2 3 Active celecoxib (CeleBREX) 200 mg capsule TAKE 1 CAPSULE BY MOUTH EVERY DAY 30 capsule 4 Active valsartan (DIOVAN) 160 mg tablet TAKE 1 TABLET BY MOUTH EVERY DAY 90 tablet 4 Active atorvastatin (LIPITOR) 80 mg tablet TAKE 1 TABLET BY MOUTH EVERY DAY 90 tablet 4 Active Active Problems Problem Noted Date Diagnosed Date Acute left-sided low back pain with left-sided s ciatica 10/23/2022 Malfunction of spinal cord stimulator (CMS/HCC) 10/23/2022 Spondylosis of lumbar joint 10/23/2022 Lumbar radicular pain 10/23/2022 Chronic obstructive pulmonary disease 07/29/2022 10/23/2022 Overview (10/23/2022): Last Assessment & Plan: Condition: stable Reviewed trigger avoidance and reviewed proper use of inhalers and rescue medications. Reviewed concerning signs/symptoms and ER precautions. 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 You may be at higher risk for developing infections or it may be harder for your to fight off an infection. Monitor for signs and symptoms of infection and contact your provider if you have an illness, wound infection, fever, or chill, as you may need to pause your medication until the infection has resolved. Follow up in: as directed by your PCP and specialist Eosinophilic asthma 12/12/2021 10/23/2022 Overview (10/23/2022): Last Assessment & Plan: Condition: stable Had appointment with Allergy on 05/29/22. Using medications as prescribed. Reviewed trigger avoidance and reviewed proper use of inhalers and rescue medications. Reviewed concerning signs/symptoms and ER precautions. Follow up in: if symptoms worsen or fail to improve Gastroesophageal reflux disease 12/12/2021 10/23/2022 Overview (10/23/2022): Last Assessment & Plan: Condition: stable Reviewed use of antacid medication and/or diet modifications of decreasing caffeine, spicy foods, chocolate, and avoiding alcohol, tobacco, NSAIDs, and reducing citrus acids. Follow up in: if symptoms worsen or fail to improve Hyperlipidemia 12/12/2021 10/23/2022 Overview (10/23/2022): Last Assessment & Plan: Condition: stable Component Ref Range & Units 06/05/22 0720 Comments Cholesterol 30 - 199 mg/dL 156 Triglycerides <=149 mg/dL 88 HDL >=40 mg/dL 84 LDL, calculated <=129 mg/dL 54 Non-HDL Cholesterol mg/dL 72 Chol/HDL ratio 2 Continue to work on modifying your lifestyle for healthy habits. Eat healthy, avoid saturated fats and processed foods. Include daily exercise. Lose excess weight. Quit smoking if you smoke. Follow up in: as directed by PCP Primary hypertension 12/12/2021 10/23/2022 Overview (10/23/2022): Last Assessment & Plan: Condition: stable Discussed target blood pressure. Continue medication as prescribed from PCP/specialist. Take medications at the same time every day. Lifestyle modification advised: DASH diet, reduce stress/anxiety, discussed health weight management, activity as tolerated or advised from PCP, try to avoid alcohol and nicotine. Follow up in: as directed by PCP and specialist Immunizations Name Administration Dates Next Due Influenza, Quadrivalent, Michelle l Culture-based MDCK, Preservative Free, Antibiotic Free, Intramuscular 02/12/2022,02/26/2021 Influenza, Quadrivalent, Spl it, Intramuscular 04/15/2017 Influenza, Quadrivalent, Spl it, Preservative Free, Intramuscular 03/20/2020,06/27/2018,01/29/2016,02/21 Influenza, Trivalent, Cell Culture-based MDCK, Preservative Free, Antibiotic Free, Intramuscular 02/12/2022,02/26/2021 Influenza, Trivalent, IM (MDV) 02/09/2014,2012,02/27/2012 Influenza, Unspecified 02/09/2022,02/26/2021,05/2016 Pneumococcal Conjugate PCV 13 08/08/2015 Pneumococcal Polysaccharide PPV23 02/26/2021 Surgical History Surgery Date Site/Laterality Comments AUGMENTATION MAMMAPLASTY Bilateral age 23 CATARACT EXTRACTION Medical History Medical History Date Comments GERD (gastroesophageal reflux disease) Arthritis Asthma Osteoporosis Cataract Emphysema of lung (HCC) Hypertension Sleep apnea Stroke (HCC) Family History Medical History Relation Name Comments Asthma Father Sp Killian COPD Father Sp Killian Relation Name Status Comments Father Sp Killian Social History Tobacco Use Types Packs/Day Years Used Date Smoking Tobacco: Every Day Cigarettes 1 15 Smokeless Tobacco: Never Tobacco Cessation:Ready to Q uit: Yes; Counseling Given: Not Answered PHQ-2 Answer Date Recorded PHQ-2 Total Score (If total score is 3 or more points, staff should administer the PHQ-9) 0 11/27/2022 Personal Safety Answer Date Recorded Getting School Help Needed Not on file 05/16 Comments No Sex and Gender Information Value Date Recorded Sex Assigned at Not on file 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 Gender Identity Not on file Sexual Orientation Not on file Obstetrics History Para Term AB IAB SAB Ectopic Multiple Livin g Live Births 3 2 2 Date Outcome GA Total Labor Labor/2nd/3rd Weight Sex Type Anes PTL Mattie A1 A5 Name Clin Term Term Last Filed Vital Signs Vital Sign Reading Time Taken Comments Blood Pressure 136/80 11/27/2022 8:55 AM CDT Pulse 99 11/27/2022 8:55 AM CDT Temperature 36.2 ??C (97.1 ??F) 10/16/2022 1:51 PM CD T Respiratory Rate 18 11/27/2022 8:55 AM CDT Oxygen Saturation 98% 11/27/2022 8:55 AM CDT Inhaled Oxygen Concentration - - Weight 73 kg (161 lb) 11/27/2022 8:55 AM CDT Height 160 cm (5' 2.99 ) 11/27/2022 8:55 AM CDT Body Mass Index 28.53 11/27/2022 8:55 AM CDT Plan of Treatment Health Maintenance Due Date Last Done Comments Cervical Cancer Screening 1960 Hepatitis C Screening 1960 DTaP/Tdap/Td Vaccine (1 - Tdap) 02/18/1972 Hepatitis B Screening 1979 Regular Well Visit/Exam 18-64 1979 Zoster Vaccine (1 of 2) 02/18/1980 Breast Cancer Screening-Mammogram 10/11/2023 Depression Screening 11/28/2023 11/27/2022, 10/23/2022, 06/05/2022 Covid-19 Vaccine (5 - 2023-2 5 season) 2024 02/11/2022, 05/08/2021, 08/11/2020, Additional history exists Influenza Vaccine (#1) 2024 2, 02/12/2022, 02/09/2022, Additional history exists Pneumococcal vaccine <65 (3 of 3 - PPSV23 or PCV20) 02/26/2026 02/26/2021, 08/08/2015 Colon Cancer Screening-Colonoscopy 01/22/2028 01/21/2023, 12/14/2019 Colon Cancer Screening-CT Colonography Discontinued 01/21/2023, 12/14/2019 Colon Cancer Screening-DNA Stool Discontinued 01/22/20 23, 12/14/2019 Colon Cancer Screening-FIT Discontinued 01/21/2023, Colon Cancer Screening-Sigmoidoscopy Discontinued 01/21/2023, 12/14/2019 Procedures Procedure Name Priority Date/Time Associated Diagnosis Comments COLONOSCOPY Routine 01/21/2023 from Last 3 Months or Most Recently Relevant to Health Maintenance Results * Colonoscopy (01/21/2023) Anatomical Region Laterality Modality Other us Historical Provider ENDOSCOPY PROCEDURES Isaura l Result from Last 3 Months or Most Recently Relevant to Health Maintenance Insurance MEDICARE [place] [place] Care Teams Lining Maker Relationship Specialty Start Date End Date Rocky Luna MD PCP - General Family Medicine 06/05/22
--- OUTSIDE RECORDS SUMMARY | 2024-06-03 23:55 | XMS_ITS | Referral Summary ---
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 Gender Identity Not on file Sexual Orientation Not on file Last Filed Vital Signs Vital Sign Reading [...] 11/27/2022 8:55 AM CDT Plan of Treatment Not on file Procedures Procedure Name Priority Date/Time Associated Diagnosis Comments COLONOSCOPY Routine 01/21/2023 from Last 3 Months or Most Recently Relevant to Health Maintenance Results * Colonoscopy (01/21/2023) Anatomical Region Laterality Modality Other us Historical Provider ENDOSCOPY PROCEDURES Isaura l Result from Last 3 Months or Most Recently Relevant to Health Maintenance Insurance MEDICARE [facility] Care Teams Mail Examiner Relationship Specialty Start Date End Date Rocky Luna MD PCP - General Family Medicine 06/05/22
== END 2024-06-02 11:24 | disposition home or self-care (01) ==
LOC: ANHLAB 11:26
PROVIDERS: PCP Family Medicine; Visit Provider Family Medicine
DX: E66.9 Obesity, unspecified (principal); E78.5 Hyperlipidemia, unspecified; F32.9 Major depressive disorder, single episode, unspecified; F41.9 Anxiety disorder, unspecified; G62.9 Polyneuropathy, unspecified; I10 Essential (primary) hypertension; J44.9 Chronic obstructive pulmonary disease, unspecified; J96.01 Acute respiratory failure with hypoxia; J96.90 Respiratory failure, unspecified, unspecified whether with hypoxia or hypercapnia; K21.9 Gastro-esophageal reflux disease without esophagitis; Z00.00 Encounter for general adult medical examination without abnormal findings; Z68.35 Body mass index [BMI] 35.0-35.9, adult; Z96.659 Presence of unspecified artificial knee joint
CPT/HCPCS: 36415; 80053; 80061; 82306; 84443; 85027

== ENCOUNTER 2024-07-06 11:22 | Outpatient (CLI) | payer OTHER, SELFPAY ==
[2024-07-06 12:04] LABS: Alanine Aminotransferase 20 U/L (6-35); Albumin Level 4.3 g/dL (3.5-5.1); Alkaline Phosphatase 118 U/L (38-126); Aspartate Amino Transferase 25 U/L (14-36); Bilirubin,Total 0.8 mg/dL (0.2-1.3)
[2024-07-06 12:30] LABS: Thyroid Stimulating Hormone 0.941 uIU/mL (0.465-4.680)
[2024-07-06 13:19] LABS: Free T3 3.52 pg/mL (2.45-5.93); Free T4 Free Thyroxine 1.01 ng/dL (0.78-2.19)
--- OUTSIDE RECORDS SUMMARY | 2024-07-06 13:32 | XMS_ITS | Referral Summary ---
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 Gender Identity Not on file Sexual Orientation Not on file Last Filed Vital Signs Vital Sign Reading Time Taken Comments Blood Pressure 136/80 11/27/2022 8:55 AM CDT Pulse 99 11/27/2022 8:55 AM CDT Temperature 36.2 C (97.1 F) 10/16/2022 1:51 PM CDT Respiratory Rate 18 11/27/2022 8:55 AM CDT [...] Recently Relevant to Health Maintenance Insurance MEDICARE [facility] [place] [address] [facility] [place] [facility] Care Teams Telesales Professional Relationship Specialty Start Date End Date Rocky Luna MD PCP - General Family Medicine 06/05/22
--- OUTSIDE RECORDS SUMMARY | 2024-07-06 13:32 | XMS_ITS | Clinical Summary ---
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 Gender Identity Not on file Sexual Orientation [...] Additional history exists Influenza Vaccine (#1) 2024 , 02/12/2022, 02/09/2022, Additional history exists Pneumococcal vaccine <65 (3 of 3 - PPSV23, PCV20 or PCV21) 02/26/2026 02/26/2021, 08/08/2015 Colon Cancer Screening-Colonoscopy 01/22/2028 [...] Recently Relevant to Health Maintenance Insurance MEDICARE [facility] Address: [address] [address] IDPA [facility] DUAL [place] Care Teams Corrections Unit Supervisor Relationship Specialty Start Date End Date Rocky Luna MD PCP - General Family Medicine 06/05/22
== END 2024-07-06 11:23 | disposition home or self-care (01) ==
LOC: ANHLAB 11:22
PROVIDERS: PCP Family Medicine; Visit Provider Family Medicine
DX: E03.8 Other specified hypothyroidism (principal)
CPT/HCPCS: 36415; 80076; 84439; 84443; 84481

== ENCOUNTER 2025-04-28 15:07 | Outpatient (CLI) | payer OTHER, SELFPAY ==
--- NOTE | ~2025-04-28 | CT_ITS ---
CT lung screening INDICATION: Nicotine dependence, screening COMPARISON: 03/31/2024. TECHNIQUE: CT examination of the entire thorax without contrast was performed using low dose technique. Thin section axial, sagittal and coronal images were included to increase sensitivity for small lung nodules. FINDINGS: PULMONARY NODULES: No suspicious noncalcified pulmonary nodules seen. OTHER PULMONARY FINDINGS: No significant nonnodular pleural or parenchymal abnormality is noted. Paracentral and centrilobular emphysema most significant in the left upper lobe. Emphysematous changes are present. No pathologically enlarged lymph nodes are present. Normal heart size. In this limited nondedicated CT there are minimal coronary artery calcifications. UPPER ABDOMEN AND PERIPHERAL SOFT TISSUE: Limited views of the upper abdomen and peripheral soft tissue demonstrated no abnormalities. OSSEOUS STRUCTURES: Bone window shows no aggressive blastic or lytic lesions. IMPRESSION: 1. Lung-RADS category 1: No nodules or definitely benign nodules. Recommendations: 1 or 2: Annual screening with low-dose CT in 12 months. 2. Paracentral and central lobular emphysematous changes are present. All CT scans at this facility are performed using low dose modulation techniques as appropriate to perform exam including the following: automated exposure control; use of iterative reconstruction technique; adjustment of the mA and/or kV according to patient size (this includes techniques or standardized protocols for targeted exams where dose is matched to indication/reason for exam). Reviewed, dictated and finalized at location S. [employer]ER DOORS IMPRESSION: 1. Lung-RADS category 1: No nodules or definitely benign nodules. Recommendations: 1 or 2: Annual screening with low-dose CT in 12 months. 2. Paracentral and central lobular emphysematous changes are present. All CT scans at this facility are performed using low dose modulation techniqu es as appropriate to perform exam including the following: automated exposure c ontrol; use of iterative reconstruction technique; adjustment of the mA and/or kV according to patient size (this includes techniques or standardized protocol s for targeted exams where dose is matched to indication/reason for exam).
--- NOTE | ~2025-04-28 | XR_ITS ---
XR lumbar spine 2-3V Indication: M54.50 - Low back pain, unspecified Comparison: None Findings: Moderate loss of vertebral height throughout. Kyphoplasty changes noted of L4 with grade 1 anterolisthesis of L3 on L4, no acute fracture. Moderate to severe loss of disc at L4-5 and L5-S1. Soft tissues unremarkable Spinal canal catheter noted. Impression: No acute abnormality. Reviewed, dictated and finalized at location P. UNICATION ENGINEER Impression: No acute abnormality.
--- OUTSIDE RECORDS SUMMARY | 2025-04-28 15:58 | XMS_ITS | Clinical Summary ---
Author Organization [facility] [employer] [facility] Address [address] [place] [address] Care Team Providers Care Clearing House Clerk Name Role Phone Unavailable Primary Care Provider Unavailabl e Social History Tobacco Use Types Packs/Day Years Used Date Smoking Tobacco: Never Assessed Comments Unknown Sex and Gender Information Value Date Recorded Sex Assigned at Not on file Legal Sex Female 8:11 PM EDT Gender Identity Not on file Sexual Orientation Not on file Plan of Treatment Not on file Medical Devices Not on file
--- OUTSIDE RECORDS SUMMARY | 2025-04-28 15:58 | XMS_ITS | Clinical Summary ---
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 Gender Identity Not on file Sexual Orientation [...] 8:55 AM CDT Height 160 cm (5' 2.99) 11/27/2022 8:55 AM CDT Body Mass Index [...] 11/27/2022, 10/23/2022, 06/05/2022 Covid-19 Vaccine (5 - 2024-2 6 season) 2025 02/11/2022, 05/08/2021, 08/11/2020, Additional history exists Influenza Vaccine (#1) 2025 2, 02/12/2022, 02/09/2022, Additional history exists Pneumococcal vaccine <65 (3 of 3 - PCV20 or PCV21) 02/26/2026 02/26/2021, 08/08/2015 Colon [...] Colonoscopy (01/21/2023) Anatomical Region Laterality Modality Other Historical Provider ENDOSCOPY PROCEDURES Isaura l Result from Last 3 Months or Most Recently Relevant to Health Maintenance Insurance MEDICARE [facility] [place] [facility] [place] Care Teams Hotel Assistant General Manager Relationship Specialty Start Date End Date Rocky Luna MD PCP - General Family Medicine 06/05/22
== END 2025-04-28 15:08 | disposition home or self-care (01) ==
PROVIDERS: PCP Family Medicine; Visit Provider Physician Assistant
DX: M54.50 Low back pain, unspecified (principal); Z87.891 Personal history of nicotine dependence
CPT/HCPCS: 71271; 72100